=== PATIENT | female | born 1955 | race Caucasian/White ===

== ENCOUNTER 2016-09-25 13:39 | Emergency (ER) | payer SELFPAY ==
[~2016-09-25] VITALS: Ht 162.6 cm; Wt 48.0 kg
[~2016-09-25 13:39] MED LIST: ADVAI100I PO; ALBU2.5I INH; ENAL20TA PO; HYDR10TA16 PO; LORA10TA PO; PRED20 PO; VENTAER INH; ZITH250T PO
[2016-09-25 13:40] VITALS: BP 139/83; PULSE 97; RESP 20; TEMP 98.5; O2SAT 95
[2016-09-25] MEDS ORDERED: methylPREDNISolone SOD SUCC 125 MG/2 ML VIAL IVP ONE (17:00)
[2016-09-25 17:06] VITALS: O2SAT 97
--- NOTE | 2016-09-25 17:17 | PD ---
HPI Chief Complaint: Respiratory Symptoms Time Seen by Provider: 17:15 Travel History International Travel<30 days: No Contact w/Intl Traveler<30days: No Traveled to known affect area: No History of Present Illness HPI 61-year-old female that presents to the ED for evaluation of possible COPD exacerbation. Per patient she's had COPD for years. She continues to smoke but states that she has not smoked for about a week because his symptoms have worsened. Per patient for the past 3 days his been more severe. She's been using her inhalers with minimal relief. Per patient she's been having a couple episodes of bad coughing spells. She denies any chest pain but she states that she feels short of breath especially with exertion. She has no primary care doctor. She denies any abdominal pain. No nausea or vomiting. No fevers chills or sweats. No sick contacts. PFSH Past Medical History Hx Anticoagulant Therapy: Yes (ASA) Asthma: Yes Cardiovascular Problems: Yes (HTN) COPD: Yes Hypertension: Yes Respiratory: Yes (COPD) Menopausal: Yes Social History Alcohol Use: Yes (3 X WEEKLY) Tobacco Use: Yes (1+ PPD) Substance Use: No Allergies-Medications (Allergen,Severity, Reaction): Coded Allergies: No Known Allergies (Verified , 09/25/16) Reported Meds & Prescriptions Reported Meds & Active Scripts Active Zithromax Z-Thad (Azithromycin) 250 Mg Tab 250 Mg PO DIRECTED 500 MG (2 TABLETS) PO ON DAY 1, THEN 250 MG (1 TABLET) PO ON DAYS 2 TO 5. Deltasone 20 Mg Tab (Prednisone) 20 Mg Tab 40 Mg PO DAILY 4 Days Resp: Albuterol 2.5 Mg/3 Ml Neb (Albuterol Sulfate) 2.5 Mg/3 Ml Nebu 2.5 Mg INH Q4H PRN Reported Advair Diskus 100/50 (Salmeterol Xinafoate/Fluticasone) Fluticasone/Salmeterol 100/50 Inh 1 Puff PO BID Ventolin Hfa (Albuterol Sulfate) 18 Gm Aero 2 Puff INH Q4 PRN * SHAKE WELL BEFORE USE * Claritin 10 Mg Tab (Loratadine) 10 Mg Tab 10 Mg PO DAILY Enalapril Maleate 20 Mg Tab 20 Mg PO BID Lortab 10/500 (Acetaminophen/Hydrocodone Bitart) 10 Mg/500 Mg Tab 1 Tab PO TID FOR PAIN Review of Systems Except as stated in HPI: all other systems reviewed are Neg Physical Exam Narrative GENERAL: Well-nourished, well-developed patient in no apparent distress. SKIN: Warm and dry. HEAD: Atraumatic. Normocephalic. EYES: Pupils equal and round reactive to light and accommodation. No scleral icterus. No injection or drainage. ENT: No nasal bleeding or discharge. Mucous membranes pink and moist. TMs are clear with no sign of infection or perforation. No mastoid tenderness. Ear canals are intact bilaterally. No lymphadenopathy. Nostril mucosa is red and moist with clear mucus noted. No sinus tenderness to palpation noted. Tonsils are not enlarged or swollen. No ulvua Deviation. Tongue is midline. NECK: Trachea midline. No JVD. No meningeal signs noted CARDIOVASCULAR: Regular rate and rhythm. RESPIRATORY: No accessory muscle use. Wheezing heard in all lower lung car. Breath sounds equal bilaterally. GASTROINTESTINAL: Abdomen soft, non-tender, nondistended. Hepatic and splenic margins not palpable. MUSCULOSKELETAL: Extremities without clubbing, cyanosis, or edema. No obvious deformities. NEUROLOGICAL: Awake and alert. No obvious cranial nerve deficits. Motor grossly within normal limits. Five out of 5 muscle strength in the arms and legs. Normal speech. PSYCHIATRIC: Appropriate mood and affect; insight and judgment normal. Data Data Last Documented VS Vital Signs Date Time Temp Pulse Resp B/P Pulse Ox O2 Delivery O2 Flow Rate FiO2 09/25/16 17:06 97 Room Air 09/25/16 13:40 98.5 97 20 139/83 Orders Chest, Single Ap (09/25/16 16:46) Ecg Monitoring (09/25/16 16:46) Iv Access Insert/Monitor (09/25/16 16:46) Oximetry (09/25/16 16:46) Methylprednisolone So Succ Inj (Solumedr (09/25/16 17:00) Albuterol-Ipratropium Neb (Duoneb Neb) (09/25/16 17:00) [facility] Medical Decision Making Medical Screen Exam Complete: Yes Emergency Medical Condition: Yes Medical Record Reviewed: Yes Interpretation(s) Chest x-ray was negative for acute disease. Differential Diagnosis COPD exacerbation versus COPD versus asthma exacerbation versus pneumonia versus bronchitis Narrative Course 61-year-old female that presents to the ED for evaluation of possible COPD exacerbation. Patient was properly examined and was found to have signs and symptoms very consistent appears to be COPD exacerbation. Vitals and physical exam are reassuring. Patient in no acute distress at this time. I do think at this time is reasonable to give patient some breathing treatments as well as started on Solu-Medrol. Patient agrees with this plan. Patient was reassessed and feels better. This time I recommend discharge with prednisone, Cipro, albuterol inhaler. Patient was told to follow up closely with PCP. See ED worsening symptoms. Diagnosis Primary Impression: COPD (chronic obstructive pulmonary disease) Qualified Code: J44.1 - Chronic obstructive pulmonary disease with acute exacerbation Patient Instructions: General Instructions Additional Instructions: Take medications as prescribed. Follow-up with PCP. See ED worsening symptoms. Stop smoking. Med/Other Pt SpecificInfo: Prescription(s) given Disposition: 01 DISCHARGE HOME Condition: Stable Hector Weber Sep 25, 2016 17:17
[2016-09-25] MEDS ORDERED: PRED20 PO (17:22)
[2016-09-25] MEDS ORDERED: CIPR-9 PO (17:22)
[2016-09-25] MEDS ORDERED: ALBUAER3 INH (17:22)
--- NOTE | 2016-09-25 17:24 | RADRPT ---
EXAM DATE/TIME: 09/25/2016 16:41 [facility] COMPARISON: CHEST SINGLE AP, June 27, 2015, 6:35. INDICATIONS : Wheezing MEDICAL HISTORY : Chronic obstructive pulmonary disease. SURGICAL HISTORY : None. ENCOUNTER: Initial ACUITY: 3 weeks PAIN SCORE: 0/10 LOCATION: Bilateral chest FINDINGS: A single portable frontal view of the chest shows the lungs to be hyperaerated. A focal convex area s een associated with the left hemidiaphragm. This is a new finding. Heart is mildly enlarged. No effus ions or infiltrates. Bony structures are unremarkable. CONCLUSION: 1. Hyperinflation consistent with COPD. 2. Focal convexity involving the left hemidiaphragm. This may simply relate to eventration of the hem idiaphragm. I cannot exclude a subpulmonic mass. CT could help differentiate. Kevin Prabhakar Jr., MD on September 25, 2016 at 17:21 Board Certified Radiologist. This report was verified electronically.
[2016-09-25] MEDS: RESP: ALBUTEROL 2.5 MG/IPRATROPIUM 0.5 MG NEB (SCH) INH (17:53)
== END 2016-09-25 18:20 | disposition home or self-care (01) ==
LOC: NEPD 13:39
DX: J44.9 Chronic obstructive pulmonary disease, unspecified (principal); I10 Essential (primary) hypertension; J45.909 Unspecified asthma, uncomplicated; F17.200 Nicotine dependence, unspecified, uncomplicated; Z79.82 Long term (current) use of aspirin; Z79.52 Long term (current) use of systemic steroids; Z79.899 Other long term (current) drug therapy
CPT/HCPCS: 71010; 94640; 94664; 96374; 99284; J2930

== ENCOUNTER 2016-11-19 20:57 | Emergency (ER) | payer SELFPAY ==
[~2016-11-19] VITALS: Ht 165.1 cm; Wt 54.0 kg
[~2016-11-19 20:57] MED LIST changes: +ALBUAER3 INH; +CIPR-9 PO
[2016-11-19 21:00] VITALS: BP 143/81; PULSE 86; RESP 24; TEMP 98.4; O2SAT 92
[2016-11-19] MEDS ORDERED: HYDR-3366 PO (22:10)
[2016-11-19] MEDS ORDERED: CLAR10CA3 PO (22:11)
[2016-11-19] MEDS ORDERED: LISI-515 PO (22:11)
[2016-11-19] MEDS ORDERED: SODIUM CHLORIDE 0.9% FLUSH 10 ML FLUSH IVF PRN (22:15)
[2016-11-19] MEDS ORDERED: methylPREDNISolone SOD SUCC 125 MG/2 ML VIAL IV PUSH ONE (22:15)
--- NOTE | 2016-11-19 22:16 | PD ---
HPI Chief Complaint: Respiratory Distress Time Seen by Provider: 21:58 Travel History International Travel<30 days: No Contact w/Intl Traveler<30days: No Traveled to known affect area: No History of Present Illness HPI The patient is a 61 year old female who presents to the [facility] emergency department with a history of developing an upper respiratory infection on November 12. She reports that a family member had been sick with similar illness, however she suffers with COPD and has been having difficulty getting over it. She reports that she had a subjective fever a few nights ago. The patient reports that she has had congestion as well as chest congestion. She reports that her sputum is thick and difficult to get up. The patient reports that she's had a green nasal discharge. The patient denies having any nausea or vomiting. She denies having any chest pain. She reports that she does have some chest tightness with trying to take a deep breath. She reports the shortness of breath is gotten worse over the last 2 days and is unrelieved with nebulizer treatments and her Ventolin rescue inhaler use. The patient reports that she continues to smoke. She reports that she has only been able to take up a few puffs off of a single cigarette daily. Otherwise on review of systems, the patient denies having any neck pain, abdominal pain, urinary symptoms, or neurologic symptoms. The patient does report having one episode of diarrhea this morning. She denies having any blood in her stool or black or tarry stools. [facility] Past Medical History Narrative Medical The patient's past medical history is significant for hypertension, COPD, daily alcohol intake of 2-3 beers per day, history of tobacco abuse. Hx Anticoagulant Therapy: Yes (ASA) Asthma: Yes Cardiovascular Problems: Yes (HTN) COPD: Yes Hypertension: Yes Respiratory: Yes (COPD) Menopausal: Yes Past Surgical History Narrative Surgical The patient's past surgical history is reportedly none. Social History Alcohol Use: Yes (2-3 beers per day) Tobacco Use: Yes (1+ PPD) Substance Use: No Allergies-Medications (Allergen,Severity, Reaction): Coded Allergies: No Known Allergies (Verified , 11/19/16) Reported Meds & Prescriptions Reported Meds & Active Scripts Active Medrol Dosepak (Methylprednisolone) 4 Mg Dspk 4 Mg PO DIRECTED Per Pharmacist direction Doxycycline Hyclate 100 Mg Cap 100 Mg PO BID Proair Hfa 8.5 GM Inh (Albuterol Sulfate) 90 Mcg/Act Aer 2 Puff INH Q4-6H PRN 108 mcg/actuation Reported Lisinopril 20 Mg Tab 20 Mg PO DAILY Claritin (Loratadine) 10 Mg Cap 10 Mg PO DAILY [place] (Hydrocodone-Acetaminophen) 10-325 Mg Tab 1 Tab PO Q8HR PRN Review of Systems Except as stated in HPI: all other systems reviewed are Neg General / Constitutional: Positive: Fever Eyes: No: Visual changes HENT: Positive: Rhinorrhea, Congestion, No: Headaches Cardiovascular: Positive: Chest Pain or Discomfort (chest tightness), Dyspnea on exertion Respiratory: Positive: Cough, Shortness of Breath Gastrointestinal: Positive: Diarrhea, Changes in Bowel Habits, No: Nausea, Vomiting, Abdominal Pain, Indigestion, Loss of Appetite Genitourinary: No: Dysuria Musculoskeletal: No: Pain Skin: No Rash Neurologic: No: Weakness, Focal Abnormalities, Change in Mentation, Slurred Speech, Sensory Disturbance Psychiatric: No: Depression Endocrine: No: Polydipsia Hematologic/Lymphatic: No: Easy Bruising Physical Exam Narrative General: The patient is a well-developed well-nourished female in no acute distress. Head and Neck exam: Head is normocephalic atraumatic. Eyes: EOMI, pupils are equal round and reactive to light. Nose: Midline septum with pink mucous membranes Mouth: Dentition unremarkable. Moist mucus membranes. Posterior oropharynx is not erythematous. No tonsillar hypertrophy. Uvula midline. Airway patent. Neck: No palpable lymphadenopathy. No nuchal rigidity. No thyromegaly. Cardiovascular: Regular rate and rhythm without murmurs, gallops, or rubs. Lungs: Expiratory wheezes are audible throughout bilateral lung car, no rhonchi, no crackles. The patient has some accessory muscle use noted. No paroxysmal abdominal breathing. Abdomen: Soft, without tenderness to palpation in all 4 quadrants of the abdomen. No guarding, rebound, or rigidity. Normal bowel sounds are audible. No tenderness on palpation of McBurney's point. Extremities: No clubbing, cyanosis, or edema. 2+ pulses in all 4 extremities. No calf tenderness on palpation. Back: No costovertebral angle tenderness to palpation. Neurologic Exam: Grossly nonfocal. Skin Exam: No rash noted. Intact skin that is warm and dry. Data Data Last Documented VS Vital Signs Date Time Temp Pulse Resp B/P (MAP) Pulse Ox O2 Delivery O2 Flow Rate FiO2 11/19/16 22:20 32 94 Room Air 11/19/16 21:00 98.4 86 143/81 (101) Orders Orders Complete Blood Count With Diff (11/19/16 22:09) B-Type Natriuretic Peptide (11/19/16 22:09) Magnesium (Mg) (11/19/16 22:09) Urinalysis - C+S If Indicated (11/19/16 22:09) Blood Culture (11/19/16 22:09) Iv Access Insert/Monitor (11/19/16 22:09) Electrocardiogram (11/19/16 22:09) Ecg Monitoring (11/19/16 22:09) Oximetry (11/19/16 22:09) Oxygen Administration (11/19/16 22:09) Chest, Single Ap (11/19/16 22:09) Sodium Chloride 0.9% Flush (Ns Flush) (11/19/16 22:15) Methylprednisolone So Succ Inj (Solumedr (11/19/16 22:15) Albuterol-Ipratropium Neb (Duoneb Neb) (11/19/16 22:15) Lactic Acid Sepsis Protocol (11/19/16 22:09) Comprehensive Metabolic Panel (11/19/16 22:09) Troponin I (11/19/16 22:09) Lipase (11/19/16 22:09) Doxycycline (Vibratab) (11/19/16 23:30) Labs Laboratory Tests Test 11/19/16 22:30 White Blood Count 4.7 TH/MM3 Red Blood Count 4.20 MIL/MM3 Hemoglobin 14.4 GM/DL Hematocrit 42.6 % Mean Corpuscular Volume 101.6 FL Mean Corpuscular Hemoglobin 34.3 PG Mean Corpuscular Hemoglobin Concent 33.7 % Red Cell Distribution Width 13.6 % Platelet Count 230 TH/MM3 Mean Platelet Volume 8.5 FL Neutrophils (%) (Auto) 59.6 % Lymphocytes (%) (Auto) 27.4 % Monocytes (%) (Auto) 9.1 % Eosinophils (%) (Auto) 3.6 % Basophils (%) (Auto) 0.3 % Neutrophils # (Auto) 2.8 TH/MM3 Lymphocytes # (Auto) 1.3 TH/MM3 Monocytes # (Auto) 0.4 TH/MM3 Eosinophils # (Auto) 0.2 TH/MM3 Basophils # (Auto) 0.0 TH/MM3 CBC Comment DIFF FINAL Differential Comment Urine Color LIGHT-YELLOW Urine Turbidity CLEAR Urine pH 5.5 Urine Specific [place] 1.006 Urine Protein NEG mg/dL Urine Glucose (UA) NEG mg/dL Urine Ketones NEG mg/dL Urine Occult Blood NEG Urine Nitrite NEG Urine Bilirubin NEG Urine Urobilinogen LESS THAN 2.0 MG/DL Urine Leukocyte Esterase SMALL Urine RBC LESS THAN 1 /hpf Urine WBC 1 /hpf Urine Squamous Epithelial Cells 1 /hpf Microscopic Urinalysis Comment CULT NOT INDICATED Blood Urea Nitrogen 8 MG/DL Creatinine 0.45 MG/DL Random Glucose 76 MG/DL Total Protein 7.1 GM/DL Albumin 3.9 GM/DL Calcium Level 8.8 MG/DL Magnesium Level 2.2 MG/DL Alkaline Phosphatase 76 U/L Aspartate Amino Transf (AST/SGOT) 18 U/L Alanine Aminotransferase (ALT/SGPT) 19 U/L Total Bilirubin 0.3 MG/DL Sodium Level 138 MEQ/L Potassium Level 3.6 MEQ/L Chloride Level 102 MEQ/L Carbon Dioxide Level 28.8 MEQ/L Anion Gap 7 MEQ/L Estimat Glomerular Filtration Rate 142 ML/MIN Lactic Acid Level 0.9 mmol/L Troponin I LESS THAN 0.02 NG/ML B-Type Natriuretic Peptide 17 PG/ML Lipase 148 U/L [facility] Medical Decision Making Medical Screen Exam Complete: Yes Emergency Medical Condition: Yes Medical Record Reviewed: Yes Interpretation(s) Last Impressions Chest X-Ray 11/19/162208 Signed Impressions: Service Date/Time: Saturday, November 19, 2016 22:25 - CONCLUSION: Hyperinflation suggesting COPD. No acute infiltrate or effusion. Kevin Prabhakar Jr., MD Differential Diagnosis COPD exacerbation, versus pneumonia, versus pneumothorax, versus new-onset congestive heart failure, versus acute coronary syndrome Narrative Course During the course of the patients emergency department visit, the patients history, examination, and differential diagnosis were reviewed with the patient. The patient had IV access obtained and blood work sent for analysis. The patient states on a surveillance system monitor with oximetry and blood pressure monitoring. The patient had an EKG done on arrival that shows a sinus tachycardia rate of 103, no acute ST segment elevation or depression, QRS duration is 85 ms, QTC is 370 ms. The patient was initially provided Solu-Medrol 125 mg IV, DuoNeb 3. The patients laboratory studies were reviewed and remarkable for a white count of 4.7, hemoglobin 14.4, platelets 2:30 with 9.1 monocytes suggestive of a viral process, CMP is remarkable for creatinine of 0.45, troponin I less than 0.02, BNP is 17, lipase 148, lactic acid 0.9, urinalysis is unremarkable. Radiology studies were reviewed and remarkable for a chest x-ray that shows hyperinflation suggesting COPD, no acute infiltrate or effusion. The patient was reexamined after DuoNeb 3. The patient reports feeling improved. The patient is on room air and her O2 saturation is 94-95%. The patient will be discharged home to continue with use of her rescue inhaler and albuterol nebulizer treatments as needed. The patient will also add onto her regimen doxycycline which she was given her first dose of her today, and a Medrol Dosepak taper. She is instructed regarding the importance of close follow-up with her primary care physician for reexamination in the next 2 days. The patient is resting comfortably and feels better, is alert and in no distress. The patients results and examination findings were discussed with the patient. The repeat examination is unremarkable and benign. The history, exam, diagnostic testing, and current condition do not suggest any significant pathology to warrant further testing, continued ED treatment, admission, or surgical evaluation at this point. The vital signs have been stable. The patient does not have uncontrollable pain, intractable vomiting, or other significant symptoms. The patient's condition is stable and appropriate for discharge. The patient will pursue further outpatient evaluation with a primary care physician or other designated or consulting physician as indicated in the discharge instructions. The patient expressed understanding and was agreeable with this plan. Diagnosis Primary Impression: COPD with exacerbation Additional Impression: Bronchitis Referrals: Primary Care Physician 2 days Patient Instructions: Acute Bronchitis (ED), COPD (Chronic Obstructive Pulmonary Disease) (ED), General Instructions Med/Other Pt SpecificInfo: Prescription(s) given Scripts Methylprednisolone Dosepak (Medrol Dosepak) 4 Mg Dspk 4 MG PO DIRECTED, #1 DSPK 0 Refills Per Pharmacist direction Prov: Love Luis MD 11/19/16 Doxycycline Hyclate (Doxycycline Hyclate) 100 Mg Cap 100 MG PO BID for Infection, #19 CAP 0 Refills Prov: Love Luis MD 11/19/16 Disposition: 01 DISCHARGE HOME Condition: Stable Love Luis MD Nov 19, 2016 22:16
[2016-11-19] MEDS: RESP: ALBUTEROL 2.5 MG/IPRATROPIUM 0.5 MG NEB (SCH) INH (22:17)
[2016-11-19 22:45] LABS: BLOOD, URINE NEG (NEG); GLUCOSE,URINE NEG (NEG); KETONE, URINE NEG (NEG); NITRITE,URINE NEG (NEG); PH, URINE 5.5 (5.0-8.5); SQUAMOUS EPITHELIAL CELL URINE 1 /hpf (0-5); URINE COLOR LIGHT-YELLOW (YELLW/STRAW)
[2016-11-19 22:46] LABS: AUTOMATED NEUTROPHIL # 2.8 TH/MM3 (1.8-7.7); BASOPHIL % 0.3 % (0.0-2.0); EOSINOPHIL # 0.2 TH/MM3 (0-0.4); EOSINOPHIL % 3.6 % (0.0-4.0); HEMATOCRIT 42.6 % (35.0-46.0); HEMO FLAGS DIFF FINAL; LYMPH % 27.4 % (9.0-44.0); LYMPHOCYTE # 1.3 TH/MM3 (1.0-4.8); MEAN CELL VOLUME 101.6 FL (80.0-100.0); MEAN CORPUSCULAR HEMOGLOBIN 34.3 PG (27.0-34.0); MEAN CORPUSCULAR HGB CONC 33.7 % (32.0-36.0); MONO % 9.1 % (0.0-8.0); NEUT % 59.6 % (16.0-70.0); PLATELET COUNT 230 TH/MM3 (150-450); RED CELL DISTRIBUTION WIDTH 13.6 % (11.6-17.2); WHITE BLOOD COUNT 4.7 TH/MM3 (4.0-11.0)
[2016-11-19 22:52] LABS: COMMENT (UR) CULT NOT INDICATED; CULTURE IF INDICATED CULT NOT INDICATED
[2016-11-19 23:04] LABS: ALT (GPT) 19 U/L (10-53); ANION GAP 7 MEQ/L (5-15); AST (GOT) 18 U/L (15-37); BICARBONATE 28.8 MEQ/L (21.0-32.0); BLOOD UREA NITROGEN 8 MG/DL (7-18); CHLORIDE 102 MEQ/L (98-107); GLOMERULAR FILTRATION RATE 142 ML/MIN (>89); MAGNESIUM 2.2 MG/DL (1.5-2.5); POTASSIUM 3.6 MEQ/L (3.5-5.1); SODIUM (NA) 138 MEQ/L (136-145)
--- NOTE | 2016-11-19 23:04 | RADRPT ---
EXAM DATE/TIME: 11/19/2016 22:25 [facility] COMPARISON: CHEST SINGLE AP, September 25, 2016, 16:41. INDICATIONS : Shortness of breath. MEDICAL HISTORY : Chronic obstructive pulmonary disease. SURGICAL HISTORY : None. ENCOUNTER: Initial ACUITY: 1 day PAIN SCORE: 0/10 LOCATION: Bilateral chest FINDINGS: A single view of the chest demonstrates the lungs to be symmetrically aerated without evidence of mas s, infiltrate or effusion. The lungs are hyperinflated bilaterally. The cardiomediastinal contours ar e unremarkable. Osseous structures are intact. CONCLUSION: Hyperinflation suggesting COPD. No acute infiltrate or effusion. Kevin Prabhakar Jr., MD on November 19, 2016 at 23:01 Board Certified Radiologist. This report was verified electronically.
[2016-11-19 23:08] LABS: ALKALINE PHOSPHATASE 76 U/L (45-117); TOTAL BILIRUBIN ADULT 0.3 MG/DL (0.2-1.0)
[2016-11-19] MEDS ORDERED: DOXYCYCLINE HYCLATE 100 MG TAB PO ONE (23:30)
[2016-11-19] MEDS ORDERED: DOXY100C PO (23:50)
[2016-11-19] MEDS ORDERED: MEDR4PAK PO (23:50)
[2016-11-20 02:15] VITALS: BP 132/81
--- NOTE | 2016-11-20 14:21 | EKG ---
Date Performed: 11/19/2016 Time Performed: 23:04:10 PTAGE: 61 years EKG: SINUS TACHYCARDIA POSSIBLE RIGHT ATRIAL ENLARGEMENT POSSIBLE LEFT ATRIAL ENLARGEMENT ABNORM AL RHYTHM ECG PREVIOUS TRACING : 06/27/2015 06.21 No significant change from previous tracing noted. DOCTOR: Christoph Mosley Interpretating Date/Time 11/20/2016 14:20:46
== END 2016-11-20 02:15 | disposition home or self-care (01) ==
LOC: NEPE 20:57
DX: J44.1 Chronic obstructive pulmonary disease with (acute) exacerbation (principal); J40 Bronchitis, not specified as acute or chronic; R94.31 Abnormal electrocardiogram [ECG] [EKG]; I10 Essential (primary) hypertension; Z72.0 Tobacco use; Z72.89 Other problems related to lifestyle
CPT/HCPCS: 71010; 80053; 81001; 83605; 83690; 83735; 83880; 84484; 85025; 87040; 93005; 94640; 94664; 96374; 99285; J2930

== ENCOUNTER 2017-04-02 13:24 | Inpatient (IN) | payer SELFPAY ==
[~2017-04-02] VITALS: Ht 166.4 cm; Wt 110.0 kg
[~2017-04-02 13:24] MED LIST changes: -ADVAI100I PO; -ALBU2.5I INH; -CIPR-9 PO; +CLAR10CA3 PO; +DOXY100C PO; -ENAL20TA PO; +HYDR-3366 PO; -HYDR10TA16 PO; +LISI-515 PO; -LORA10TA PO; +MEDR4PAK PO; -PRED20 PO; -VENTAER INH; -ZITH250T PO
[2017-04-02 13:28] VITALS: BP 127/84; PULSE 95; RESP 22; TEMP 98.6; O2SAT 94
--- NOTE | 2017-04-02 14:13 | RADRPT ---
EXAM DATE/TIME: 04/02/2017 14:00 [facility] COMPARISON: CHEST SINGLE AP, November 19, 2016, 22:25. INDICATIONS : Short of breath. MEDICAL HISTORY : Chronic obstructive pulmonary disease. SURGICAL HISTORY : None. ENCOUNTER: Initial ACUITY: 1 month PAIN SCORE: 0/10 LOCATION: Bilateral chest FINDINGS: PA and lateral views of the chest were obtained and demonstrate hyperinflation of both lungs with mil d bullous change. There is a benign calcified structure again noted in the left lung apex. There are no new confluent infiltrates or effusions. The heart and mediastinal structures remain within normal limits. Mild atherosclerotic changes present in the aorta. CONCLUSION: 1. Underlying emphysema and bullous change. 2. No evidence of pneumonia. Artur Prater MD on April 02, 2017 at 14:09 Board Certified Radiologist. This report was verified electronically.
[2017-04-02 15:41] LABS: AUTOMATED NEUTROPHIL # 3.7 TH/MM3 (1.8-7.7); BASOPHIL % 0.4 % (0.0-2.0); EOSINOPHIL # 0.2 TH/MM3 (0-0.4); EOSINOPHIL % 4.7 % (0.0-4.0); HEMATOCRIT 44.1 % (35.0-46.0); HEMOGLOBIN 14.9 GM/DL (11.6-15.3); LYMPHOCYTE # 0.9 TH/MM3 (1.0-4.8); MEAN CELL VOLUME 101.3 FL (80.0-100.0); MEAN CORPUSCULAR HEMOGLOBIN 34.3 PG (27.0-34.0); MEAN CORPUSCULAR HGB CONC 33.9 % (32.0-36.0); MEAN PLATELET VOLUME 8.8 FL (7.0-11.0); MONO % 6.3 % (0.0-8.0); MONOCYTE # 0.3 TH/MM3 (0-0.9); NEUT % 71.6 % (16.0-70.0); PLATELET COUNT 230 TH/MM3 (150-450); RED BLOOD COUNT 4.35 MIL/MM3 (4.00-5.30); RED CELL DISTRIBUTION WIDTH 13.7 % (11.6-17.2); WHITE BLOOD COUNT 5.2 TH/MM3 (4.0-11.0)
[2017-04-02 16:06] LABS: PROTHROMBIN TIME - PATIENT 9.8 SEC (9.8-11.6)
[2017-04-02 16:08] LABS: BICARBONATE 30.8 MEQ/L (21.0-32.0); BLOOD UREA NITROGEN 12 MG/DL (7-18); CALCIUM 8.7 MG/DL (8.5-10.1); CHLORIDE 105 MEQ/L (98-107); CREATININE 0.42 MG/DL (0.50-1.00); GLOMERULAR FILTRATION RATE 154 ML/MIN (>89); GLUCOSE,RANDOM 84 MG/DL (74-106); MAGNESIUM 2.4 MG/DL (1.5-2.5); SODIUM (NA) 142 MEQ/L (136-145); TROPONIN I LESS THAN 0.02 NG/ML (0.02-0.05)
[2017-04-02] MEDS ORDERED: LORA-392 PO (16:29)
[2017-04-02 16:30] VITALS: O2SAT 100
[2017-04-02] MEDS ORDERED: methylPREDNISolone SOD SUCC 125 MG/2 ML VIAL IV PUSH ONE (16:30)
[2017-04-02] MEDS ORDERED: SODIUM CHLOR 0.9% 1000 ML INJ 1,000 ML IV ONE (16:30)
--- NOTE | 2017-04-02 16:36 | PD ---
HPI Chief Complaint: Respiratory Symptoms Time Seen by Provider: 16:19 Travel History International Travel<30 days: No Contact w/Intl Traveler<30days: No Traveled to known affect area: No History of Present Illness HPI 61-year-old female with a history of COPD, anxiety, and continuous tobacco dependence presents emergency department with shortness of breath that started approximately 3 weeks ago. Says that she went to her primary care physician on Sunday and he prescribed her steroids and azithromycin and she felt better for 2 days but has since gone back to how she was feeling before. States she has been using albuterol inhalers and nebulizers at home and this is not significantly improved her condition. Her last yeager of prednisone was yesterday. Patient does not have a primary care physician that she follows regularly. Pt denies chest pain, back pain, abdominal pain, leg pain. Denies history of clots , travel, surgeries, fractures. Denies cardiac history or ever getting stress test or echocardiogram. Denies use of oxygen at home. Her friend helps give history as well. Says she has looked this short of breath for several months and says this is not a new finding. PFSH Past Medical History Hx Anticoagulant Therapy: Yes (ASA) Asthma: Yes Cardiovascular Problems: Yes (HTN) COPD: Yes Diminished Hearing: No Hypertension: Yes Respiratory: Yes (COPD) Menopausal: Yes Social History Alcohol Use: Yes (2-3 beers per day) Tobacco Use: Yes (1+ PPD) Substance Use: No Allergies-Medications (Allergen,Severity, Reaction): Coded Allergies: No Known Allergies (Verified Adverse Reaction, Unknown, 04/02/17) Reported Meds & Prescriptions Reported Meds & Active Scripts Active Proair Hfa 8.5 GM Inh (Albuterol Sulfate) 90 Mcg/Act Aer 2 Puff INH Q4-6H PRN 108 mcg/actuation Reported Ativan (Lorazepam) 0.5 Mg Tab 0.5 Mg PO DAILY PRN Lisinopril 20 Mg Tab 20 Mg PO DAILY Claritin (Loratadine) 10 Mg Cap 10 Mg PO DAILY [place] (Hydrocodone-Acetaminophen) 10-325 Mg Tab 1 Tab PO Q8HR PRN Review of Systems Except as stated in HPI: all other systems reviewed are Neg Physical Exam Narrative GENERAL: WD, WN, in NAD SKIN: Warm and dry. HEAD: Atraumatic. Normocephalic. EYES: Pupils equal and round. No scleral icterus. No injection or drainage. ENT: No nasal bleeding or discharge. Mucous membranes pink and moist. NECK: Trachea midline. No JVD. CARDIOVASCULAR: Regular rate and rhythm. RESPIRATORY: No accessory muscle use. Clear to auscultation. Breath sounds equal bilaterally. GASTROINTESTINAL: Abdomen soft, non-tender, nondistended. Hepatic and splenic margins not palpable. MUSCULOSKELETAL: Extremities without clubbing, cyanosis, or edema. No obvious deformities. NEUROLOGICAL: Awake and alert. No obvious cranial nerve deficits. Motor grossly within normal limits. Five out of 5 muscle strength in the arms and legs. Normal speech. PSYCHIATRIC: Appropriate mood and affect; insight and judgment normal. Data Data Last Documented VS Vital Signs Date Time Temp Pulse Resp B/P (MAP) Pulse Ox O2 Delivery O2 Flow Rate FiO2 04/02/17 16:30 100 Nasal Cannula 2.00 04/02/17 13:28 98.6 95 22 127/84 (98) Orders Orders Complete Blood Count With Diff (04/02/17 13:53) Basic Metabolic Panel (Bmp) (04/02/17 13:53) Act Partial Throm Time (Ptt) (04/02/17 13:53) Prothrombin Time / Inr (Pt) (04/02/17 13:53) Magnesium (Mg) (04/02/17 13:53) Ckmb (Isoenzyme) Profile (04/02/17 13:53) Troponin I (04/02/17 13:53) Electrocardiogram (04/02/17 13:53) Chest, Pa & Lat (04/02/17 13:53) Methylprednisolone So Succ Inj (Solumedr (04/02/17 16:30) Albuterol-Ipratropium Neb (Duoneb Neb) (04/02/17 16:30) Sodium Chlor 0.9% 1000 Ml Inj (Ns 1000 M (04/02/17 16:30) Admit Order (Ed Use Only) (04/02/17 19:15) Labs Laboratory Tests Test 04/02/17 14:59 White Blood Count 5.2 TH/MM3 Red Blood Count 4.35 MIL/MM3 Hemoglobin 14.9 GM/DL Hematocrit 44.1 % Mean Corpuscular Volume 101.3 FL Mean Corpuscular Hemoglobin 34.3 PG Mean Corpuscular Hemoglobin Concent 33.9 % Red Cell Distribution Width 13.7 % Platelet Count 230 TH/MM3 Mean Platelet Volume 8.8 FL Neutrophils (%) (Auto) 71.6 % Lymphocytes (%) (Auto) 17.0 % Monocytes (%) (Auto) 6.3 % Eosinophils (%) (Auto) 4.7 % Basophils (%) (Auto) 0.4 % Neutrophils # (Auto) 3.7 TH/MM3 Lymphocytes # (Auto) 0.9 TH/MM3 Monocytes # (Auto) 0.3 TH/MM3 Eosinophils # (Auto) 0.2 TH/MM3 Basophils # (Auto) 0.0 TH/MM3 CBC Comment DIFF FINAL Differential Comment Prothrombin Time 9.8 SEC Prothromb Time International Ratio 1.0 RATIO Activated Partial Thromboplast Time 26.9 SEC Blood Urea Nitrogen 12 MG/DL Creatinine 0.42 MG/DL Random Glucose 84 MG/DL Calcium Level 8.7 MG/DL Magnesium Level 2.4 MG/DL Sodium Level 142 MEQ/L Potassium Level 4.2 MEQ/L Chloride Level 105 MEQ/L Carbon Dioxide Level 30.8 MEQ/L Anion Gap 6 MEQ/L Estimat Glomerular Filtration Rate 154 ML/MIN Total Creatine Kinase 85 U/L Troponin I LESS THAN 0.02 NG/ML MDM Medical Decision Making Medical Screen Exam Complete: Yes Emergency Medical Condition: Yes Differential Diagnosis COPD exacerbation, PNA, asthma exacerbation, tobacco dependence, anxiety Narrative Course 61-year-old female with a history of COPD, anxiety, and continuous tobacco dependence presents emergency department with shortness of breath that started approximately 3 weeks ago. Says that she went to her primary care physician on Sunday and he prescribed her steroids and azithromycin and she felt better for 2 days but has since gone back to how she was feeling before. States she has been using albuterol inhalers and nebulizers at home and this is not significantly improved her condition. Her last yeager of prednisone was yesterday. Patient does not have a primary care physician that she follows regularly. Pt denies chest pain, back pain, abdominal pain, leg pain. Denies history of clots , travel, surgeries, fractures. Denies cardiac history or ever getting stress test or echocardiogram. Denies use of oxygen at home. Her friend helps give history as well. Says she has looked this short of breath for several months and says this is not a new finding. States she has been out of her alprazolam for her anxiety. O2 Saturation 92-93% RA Duonebs, solumedrol, IVF ordered. Pt does feel better after the duonebs but still feels SOB. Last Impressions Chest X-Ray 04/02/17 1353 Signed Impressions: Service Date/Time: Sunday, April 02, 2017 14:00 - CONCLUSION: 1. Underlying emphysema and bullous change. 2. No evidence of pneumonia. Artur Prater MD Cardiac enzymes negative. CBC & BMP Diagram 04/02/17 14:59 Calcium Level 8.7, Magnesium Level 2.4 Pt initially agreed to go home however, after further discussion, patient states that she would like to stay. Walking SaO2 at 86-88 without oxygen. Patient is not normally on oxygen at home. Patient will be admitted to observation. Diagnosis Primary Impression: Tobacco dependence Additional Impression: COPD (chronic obstructive pulmonary disease) Qualified Codes: J44.1 - Chronic obstructive pulmonary disease with (acute) exacerbation Admitting Information Admitting Physician Requests: Observation Condition: Stable Tammie Berrios Apr 02, 2017 16:36
[2017-04-02] MEDS: RESP: ALBUTEROL 2.5 MG/IPRATROPIUM 0.5 MG NEB (SCH) INH ×2 (16:49→16:50)
--- NOTE | 2017-04-02 18:36 | PD ---
Physical Exam Narrative I, Dr. Peraza, have reviewed the advance practice practitioner's documentation and am in agreement, met with the patient face to face, made the diagnosis, and the medical decision making was done by me. *My assessment and Findings: Patient is a 61-year-old female comes in complaining of shortness of breath. She says it seems to get worse at night. She is still smoking. Exam shows occasional wheezing and coarse breath sounds. Data Data Last Documented VS Vital Signs Date Time Temp Pulse Resp B/P (MAP) Pulse Ox O2 Delivery O2 Flow Rate FiO2 04/02/17 16:30 100 Nasal Cannula 2.00 04/02/17 13:28 98.6 95 22 127/84 (98) Orders Orders Complete Blood Count With Diff (04/02/17 13:53) Basic Metabolic Panel (Bmp) (04/02/17 13:53) Act Partial Throm Time (Ptt) (04/02/17 13:53) Prothrombin Time / Inr (Pt) (04/02/17 13:53) Magnesium (Mg) (04/02/17 13:53) Ckmb (Isoenzyme) Profile (04/02/17 13:53) Troponin I (04/02/17 13:53) Electrocardiogram (04/02/17 13:53) Chest, Pa & Lat (04/02/17 13:53) Methylprednisolone So Succ Inj (Solumedr (04/02/17 16:30) Albuterol-Ipratropium Neb (Duoneb Neb) (04/02/17 16:30) Sodium Chlor 0.9% 1000 Ml Inj (Ns 1000 M (04/02/17 16:30) Admit Order (Ed Use Only) (04/02/17 19:15) Labs Laboratory Tests Test 04/02/17 14:59 White Blood Count 5.2 TH/MM3 Red Blood Count 4.35 MIL/MM3 Hemoglobin 14.9 GM/DL Hematocrit 44.1 % Mean Corpuscular Volume 101.3 FL Mean Corpuscular Hemoglobin 34.3 PG Mean Corpuscular Hemoglobin Concent 33.9 % Red Cell Distribution Width 13.7 % Platelet Count 230 TH/MM3 Mean Platelet Volume 8.8 FL Neutrophils (%) (Auto) 71.6 % Lymphocytes (%) (Auto) 17.0 % Monocytes (%) (Auto) 6.3 % Eosinophils (%) (Auto) 4.7 % Basophils (%) (Auto) 0.4 % Neutrophils # (Auto) 3.7 TH/MM3 Lymphocytes # (Auto) 0.9 TH/MM3 Monocytes # (Auto) 0.3 TH/MM3 Eosinophils # (Auto) 0.2 TH/MM3 Basophils # (Auto) 0.0 TH/MM3 CBC Comment DIFF FINAL Differential Comment Prothrombin Time 9.8 SEC Prothromb Time International Ratio 1.0 RATIO Activated Partial Thromboplast Time 26.9 SEC Blood Urea Nitrogen 12 MG/DL Creatinine 0.42 MG/DL Random Glucose 84 MG/DL Calcium Level 8.7 MG/DL Magnesium Level 2.4 MG/DL Sodium Level 142 MEQ/L Potassium Level 4.2 MEQ/L Chloride Level 105 MEQ/L Carbon Dioxide Level 30.8 MEQ/L Anion Gap 6 MEQ/L Estimat Glomerular Filtration Rate 154 ML/MIN Total Creatine Kinase 85 U/L Troponin I LESS THAN 0.02 NG/ML MDM Supervised Visit with ANTONIA: Yes Narrative Course Patient was given duo nebs with some improvement of her symptoms. Chest x-ray shows no acute abnormalities. When patient stands up, her oxygen saturation drops into the 80s. She does not have home oxygen. She will be admitted for further management. Diagnosis Primary Impression: Tobacco dependence Additional Impression: COPD (chronic obstructive pulmonary disease) Qualified Codes: J44.1 - Chronic obstructive pulmonary disease with (acute) exacerbation Admitting Information Admitting Physician Requests: Observation Scripts Prednisone (Prednisone) 20 Mg Tab 20 MG PO BID for Broncospasm for 5 Days, #10 TAB 0 Refills Prov: Lesley Phan 04/04/17 [Budeson-Formot 160-4.5 Mcg Inh] 60 PUFF AERO No Conflict Check 2 PUFF INH Q12HR, #1 INHALER Prov: Lesley Phan 04/04/17 Multiple Vitamins W/ Minerals (Thera M Plus) 1 Tab 1 TAB PO DAILY for Nutritional Supplement, #30 TAB Prov: Lesley Phan 04/03/17 Thiamine HCl (Gnp Vitamin B-1) 100 Mg Tab 100 MG PO DAILY for Nutritional Supplement, #30 TAB Prov: Lesley Phan 04/03/17 Folic Acid (Folic Acid) 1 Mg Tablet 1 MG PO DAILY for Nutritional Supplement, #30 TAB Prov: Lesley Phan 04/03/17 [Albuterol-Ipratropium Neb] 1 AMPULE NEBU No Conflict Check 1 AMPULE NEB Q4HR WHILE AWAKE NEB, #100 AMPULE Prov: Lesley Phan 04/03/17 Levofloxacin (Levaquin) 750 Mg Tablet 750 MG PO DAILY@1800 for COPD EXAC, #6 TAB Prov: Lesley Phan 04/03/17 Condition: Nicole Shepherd MD Apr 02, 2017 18:36
[2017-04-02 19:25] VITALS: BP 127/80; PULSE 66; RESP 26; O2SAT 93
--- NOTE | 2017-04-02 19:27 | HHI.HP ---
HPI Service [facility] Primary Care Physician Breanna Bacon) Jaspreet Juárez MD Admission Diagnosis COPD, hypoxia, Walking O2 86-88% Diagnoses: (1) COPD (chronic obstructive pulmonary disease) Diagnosis: Principal (2) Hypoxia Diagnosis: Principal (3) HTN (hypertension) Diagnosis: Principal (4) Alcohol use Diagnosis: Principal (5) Tobacco abuse Diagnosis: Principal Travel History International Travel<30 Days: No Contact w/Intl Traveler <30 Da: No Traveled to Known Affected Are: No History of Present Illness This is a 61-year-old female with a PMH of HTN, COPD and Tobacco Abuse presented to the ER with complaints of SOB and wheezing. States symptoms have been ongoing for 2-3 wks. Seen by PCP for similar complaints on Sunday, started on Prednisone and Z-pack which she completed. Reports temporary improvement w/ treatment, however now w/ recurrent symptoms. +SOB/wheezing, moderate to severe, worse w/ exertion, associated w/ non-productive cough. Reports sick contact, sister/mother sick. Denies fever or chills. On arrival, BP 127/84, HR 95, O2 sat 94% on RA, Afebrile. CBC essentially unremarkable. Chemistry unremarkable. INR 1.0. CXR with underlying emphysema and bullous changes, no pneumonia. Pt had ambulating O2 in ER w/ O2 sat 86-88% and significant dyspnea. Review of Systems Except as stated in HPI: all other systems reviewed are Neg ROS: 14 point review of systems otherwise negative. Past Family Social History Past Medical History PMH: HTN, COPD and Tobacco Abuse Past Surgical History PAST SURGICAL HISTORY: None Allergies: Coded Allergies: No Known Allergies (Verified Allergy, Unknown, 04/02/17) Family History PAST FAMILY HISTORY: Reviewed. No h/o DM or CAD Social History PAST SOCIAL HISTORY: Drinks 2-3 beers per day. Smokes 3-5 cigarettes per day. Negative for drugs. Physical Exam Vital Signs Vital Signs Date Time Temp Pulse Resp B/P (MAP) Pulse Ox O2 Delivery O2 Flow Rate FiO2 04/02/17 16:30 100 Nasal Cannula 2.00 04/02/17 13:28 98.6 95 22 127/84 (98) 94 Room Air Physical Exam PE: GENERAL: Pleasant middle-aged white female in no acute distress. Some dyspnea with speech HEENT: PERRLA, EOMI. No scleral icterus or conjunctival pallor. No lid lag or facial droop. CARDIOVASCULAR: Regular rate and rhythm. No obvious murmurs to auscultation. No chest tenderness to palpation. RESPIRATORY: No obvious rhonchi, +wheezing. Clear to auscultation. Breath sounds equal bilaterally. GASTROINTESTINAL: Abdomen soft, non-tender, nondistended. BS normal. MUSCULOSKELETAL: Extremities without clubbing, cyanosis, or edema. No obvious deformities. NEUROLOGICAL: Awake, alert and oriented x4. No focal neurologic deficits. Moving both upper and lower extremities spontaneously. Laboratory Laboratory Tests Test 04/02/17 14:59 White Blood Count 5.2 Red Blood Count 4.35 Hemoglobin 14.9 Hematocrit 44.1 Mean Corpuscular Volume 101.3 Mean Corpuscular Hemoglobin 34.3 Mean Corpuscular Hemoglobin Concent 33.9 Red Cell Distribution Width 13.7 Platelet Count 230 Mean Platelet Volume 8.8 Neutrophils (%) (Auto) 71.6 Lymphocytes (%) (Auto) 17.0 Monocytes (%) (Auto) 6.3 Eosinophils (%) (Auto) 4.7 Basophils (%) (Auto) 0.4 Neutrophils # (Auto) 3.7 Lymphocytes # (Auto) 0.9 Monocytes # (Auto) 0.3 Eosinophils # (Auto) 0.2 Basophils # (Auto) 0.0 CBC Comment DIFF FINAL Differential Comment Prothrombin Time 9.8 Prothromb Time International Ratio 1.0 Activated Partial Thromboplast Time 26.9 Blood Urea Nitrogen 12 Creatinine 0.42 Random Glucose 84 Calcium Level 8.7 Magnesium Level 2.4 Sodium Level 142 Potassium Level 4.2 Chloride Level 105 Carbon Dioxide Level 30.8 Anion Gap 6 Estimat Glomerular Filtration Rate 154 Total Creatine Kinase 85 Troponin I LESS THAN 0.02 Result Diagram: 04/02/17 1459 04/02/17 1459 Caprini VTE Risk Assessment Caprini VTE Risk Assessment: No/Low Risk (score <= 1) Caprini Risk Assessment Model Point Value = 1 Point Value = 2 Point Value = 3 Point Value = 5 Age 41-60 Minor surgery BMI > 25 kg/m2 Swollen legs Varicose veins or History of unexplained or recurrent spontaneous Oral contraceptives or hormone replacement Sepsis (< 1 month) Serious lung disease, including pneumonia (< 1 month) Abnormal pulmonary function Acute myocardial infarction Congestive heart failure (< 1 month) History of inflammatory bowel disease Medical patient at bed rest Age 61-74 Arthroscopic surgery Major open surgery (> 45 min) Laparoscopic surgery (> 45 min) Malignancy Confined to bed (> 72 hours) Immobilizing plaster cast Central venous access Age >= 75 History of VTE Family history of VTE Factor V Leiden Prothrombin 52538H Lupus anticoagulant Anticardiolipin antibodies Elevated serum homocysteine Heparin-induced thrombocytopenia Other congenital or acquired thrombophilia Stroke (< 1 month) Elective arthroplasty Hip, pelvis, or leg fracture Acute spinal cord injury (< 1 month) Prophylaxis Regimen Total Risk Factor Score Risk Level Prophylaxis Regimen 0-1 Low Early ambulation 2 Moderate Order ONE of the following: *Sequential Compression Device (SCD) *Heparin 5000 units SQ BID 3-4 Higher Order ONE of the following medications: *Heparin 5000 units SQ TID *Enoxaparin/Lovenox 40 mg SQ daily (WT < 150 kg, CrCl > 30 mL/min) *Enoxaparin/Lovenox 30 mg SQ daily (WT < 150 kg, CrCl > 10-29 mL/min) *Enoxaparin/Lovenox 30 mg SQ BID (WT < 150 kg, CrCl > 30 mL/min) AND/OR *Sequential Compression Device (SCD) 5 or more Highest Order ONE of the following medications: *Heparin 5000 units SQ TID (Preferred with Epidurals) *Enoxaparin/Lovenox 40 mg SQ daily (WT < 150 kg, CrCl > 30 mL/min) *Enoxaparin/Lovenox 30 mg SQ daily (WT < 150 kg, CrCl > 10-29 mL/min) *Enoxaparin/Lovenox 30 mg SQ BID (WT < 150 kg, CrCl > 30 mL/min) AND *Sequential Compression Device (SCD) Assessment and Plan Problem List: (1) COPD (chronic obstructive pulmonary disease) ICD Code: J44.9 - Chronic obstructive pulmonary disease, unspecified Status: Acute (2) Hypoxia ICD Code: R09.02 - Hypoxemia (3) HTN (hypertension) ICD Code: I10 - Essential (primary) hypertension (4) Tobacco abuse ICD Code: Z72.0 - Tobacco use (5) Alcohol use ICD Code: Z78.9 - Other specified health status Assessment and Plan A/P: 1. COPD: Chronic Respiratory Failure w/ Acute Exacerbation. Severe. Failed Outpatient Tx, recently completed treatment w/ steroids/Z-pack. CXR w/ COPD/ emphysema, images reviewed by me. S/p Solu-Medrol and DuoNeb w/ mild improvement, however persistent SOB/Dyspnea. Solu-Medrol, DuoNeb q4h and q2h prn, Mucinex, Symbicort. 2. Hypoxia: Ambulating O2 sat 86% while in ER, monitor O2 closely. Re-eval w / repeat ambulating O2 after improvement of COPD to determine need to Home O2, not currently on Home O2 at this time. Monitor closely. 3. HTN: Resume home Lisinopril, monitor BP. 4. Alcohol Use: Drinks 2-3 beers daily, start CIWA for possible withdrawal symptoms. 5. Tobacco Abuse: Stopped smoking 3 days ago due to COPD, NicoDerm prn if needed. 6. DVT Prophylaxis: Lovenox 7. Social work for d/c planning as needed. 8. Case discussed w/ ER physician at length, labs/records/imaging reviewed by me. Physician Certification 2 Midnight Certification Type: Admission for Inpatient Services Order for Inpatient Services The services are ordered in accordance with Medicare regulations or non- Medicare payer requirements, as applicable. In the case of services not specified as inpatient-only, they are appropriately provided as inpatient services in accordance with the 2-midnight benchmark. Estimated LOS (days): 2 days is the estimated time the patient will need to remain in the hospital, assuming treatment plan goals are met and no additional complications. Post-Hospital Plan: Not yet determined Problem Qualifiers (1) COPD (chronic obstructive pulmonary disease): Qualified Codes: J44.1 - Chronic obstructive pulmonary disease with (acute) exacerbation Liseth Cade MD Apr 02, 2017 19:27
[2017-04-02] MEDS ORDERED: LORazepam 2 MG/ML VIAL IV PUSH PRN ×4 (19:30)
[2017-04-02] MEDS ORDERED: ONDANSETRON HCL 4 MG/2 ML VIAL IVP PRN (19:30)
[2017-04-02] MEDS ORDERED: RESP: ALBUTEROL 2.5 MG/IPRATROPIUM 0.5 MG NEB (PRN) NEB (19:30)
[2017-04-02] MEDS ORDERED: SENNOSIDES 8.6 MG TAB PO PRN (19:30)
[2017-04-02] MEDS ORDERED: FLUMAZENIL 0.5 MG/5 ML VIAL IV PUSH PRN (19:30)
[2017-04-02] MEDS ORDERED: MAGNESIUM HYDROXIDE SUSP 30 ML CUP PO PRN (19:30)
[2017-04-02] MEDS ORDERED: LORazepam 1 MG TAB PO PRN (19:30)
[2017-04-02] MEDS ORDERED: ACETAMINOPHEN/HYDROcodone 325 MG/5 MG TAB PO PRN (19:30)
[2017-04-02] MEDS ORDERED: HALOPERIDOL LACTATE 5 MG/ML AMP IM PRN (19:30)
[2017-04-02] MEDS ORDERED: SODIUM CHLORIDE 0.9% FLUSH 10 ML FLUSH IV FLUSH PRN (19:30)
[2017-04-02] MEDS ORDERED: LORazepam 2 MG TAB PO PRN (19:30)
[2017-04-02] MEDS ORDERED: LORazepam 0.5 MG TAB PO PRN (19:30)
[2017-04-02] MEDS ORDERED: ACETAMINOPHEN 325 MG TAB PO PRN (19:30)
[2017-04-02] MEDS ORDERED: BISACODYL 10 MG SUPP RECTAL PRN (19:30)
[2017-04-02] MEDS ORDERED: LACTULOSE SYRUP 20 GM/30 ML CUP PO PRN (19:30)
[2017-04-02 20:30] VITALS: O2SAT 96
[2017-04-02] MEDS: RESP: ALBUTEROL 2.5 MG/IPRATROPIUM 0.5 MG NEB (SCH) NEB (20:30)
[2017-04-02 20:55] VITALS: BP 110/75; PULSE 95; RESP 20; TEMP 98.4; O2SAT 95
[2017-04-02] MEDS: BUDESONIDE-FORMOTEROL 160/4.5 MCG INHALER INH SCH (21:00)
[2017-04-02] MEDS: guaiFENesin E.R. 600 MG TAB PO SCH (22:03)
[2017-04-02] MEDS: DOCUSATE SODIUM 50 MG/SENNA 8.6 MG TAB PO SCH (22:03)
[2017-04-02] MEDS: SODIUM CHLORIDE 0.9% FLUSH 10 ML FLUSH IV FLUSH SCH (22:04)
[2017-04-03] VITALS (9 sets, daily range): BP systolic 105–177; BP diastolic 58–94; PULSE 69–114; RESP 18–20; TEMP 95.6–98.4; O2SAT 92–99
[2017-04-03] MEDS: methylPREDNISolone SOD SUCC 40 MG/1 ML VIAL IV PUSH SCH ×5 (01:11→23:26)
[2017-04-03 05:15] LABS: AUTOMATED NEUTROPHIL # 3.3 TH/MM3 (1.8-7.7); BASOPHIL % 0.1 % (0.0-2.0); EOSINOPHIL % 0.1 % (0.0-4.0); HEMATOCRIT 42.3 % (35.0-46.0); HEMOGLOBIN 14.6 GM/DL (11.6-15.3); LYMPH % 8.4 % (9.0-44.0); LYMPHOCYTE # 0.3 TH/MM3 (1.0-4.8); MEAN CELL VOLUME 101.3 FL (80.0-100.0); MEAN CORPUSCULAR HEMOGLOBIN 35.1 PG (27.0-34.0); MEAN CORPUSCULAR HGB CONC 34.6 % (32.0-36.0); MEAN PLATELET VOLUME 8.5 FL (7.0-11.0); MONO % 0.7 % (0.0-8.0); NEUT % 90.7 % (16.0-70.0); PLATELET COUNT 189 TH/MM3 (150-450); RED BLOOD COUNT 4.18 MIL/MM3 (4.00-5.30); RED CELL DISTRIBUTION WIDTH 13.8 % (11.6-17.2); WHITE BLOOD COUNT 3.7 TH/MM3 (4.0-11.0)
[2017-04-03 05:37] LABS: ALBUMIN 3.6 GM/DL (3.4-5.0); AST (GOT) 11 U/L (15-37); BICARBONATE 30.4 MEQ/L (21.0-32.0); BLOOD UREA NITROGEN 15 MG/DL (7-18); CALCIUM 9.2 MG/DL (8.5-10.1); CHLORIDE 105 MEQ/L (98-107); CREATININE 0.43 MG/DL (0.50-1.00); GLOMERULAR FILTRATION RATE 150 ML/MIN (>89); GLUCOSE,RANDOM 138 MG/DL (74-106); SODIUM (NA) 139 MEQ/L (136-145)
[2017-04-03 05:42] LABS: ALKALINE PHOSPHATASE 65 U/L (45-117); ALT (GPT) 16 U/L (10-53); TOTAL BILIRUBIN ADULT 0.3 MG/DL (0.2-1.0); TOTAL PROTEIN 6.6 GM/DL (6.4-8.2)
[2017-04-03] MEDS: RESP: ALBUTEROL 2.5 MG/IPRATROPIUM 0.5 MG NEB (SCH) NEB ×4 (07:24→19:12)
[2017-04-03] MEDS: LISINOPRIL 20 MG TAB PO SCH (09:09)
[2017-04-03] MEDS: guaiFENesin E.R. 600 MG TAB PO SCH ×2 (09:09→20:24)
[2017-04-03] MEDS: MULTIVITAMINS/MINERALS THERAPEUTIC TAB PO SCH (09:09)
[2017-04-03] MEDS: THIAMINE HCL 100 MG TAB PO SCH (09:09)
[2017-04-03] MEDS: DOCUSATE SODIUM 50 MG/SENNA 8.6 MG TAB PO SCH ×2 (09:09→20:24)
[2017-04-03] MEDS: FOLIC ACID 1 MG TAB PO SCH (09:09)
[2017-04-03] MEDS: ACETAMINOPHEN/HYDROcodone 325 MG/10 MG TAB PO PRN ×2 (09:10→18:21)
[2017-04-03] MEDS: ENOXAPARIN SODIUM 40 MG/0.4 ML SYRINGE SQ SCH (09:10)
[2017-04-03] MEDS: SODIUM CHLORIDE 0.9% FLUSH 10 ML FLUSH IV FLUSH SCH ×2 (09:11→20:24)
[2017-04-03] MEDS: BUDESONIDE-FORMOTEROL 160/4.5 MCG INHALER INH SCH ×2 (09:48→20:24)
--- NOTE | 2017-04-03 16:19 | HHI.PR ---
Subjective Remarks Follow-up visit HTN, COPD, tobacco abuse. Patient seen and examined today sitting in chair. On room air. O2 sat is 92%. Reports occasional shortness of breath but states improved significantly. She is able to get some air she says. She has not walked without nasal cannula O2. States that she is afraid to get out of the room because of flu and other diseases around the hospital. Discussed with patient importance of activities and if she wants she can have a mask when she gets out of the room to find out if she is able to tolerate activities without use of O2. Denies fevers, chills, nausea, vomiting, diarrhea. Denies chest pain, dizziness, headaches. Objective Vitals Vital Signs Date Time Temp Pulse Resp B/P (MAP) Pulse Ox O2 Delivery O2 Flow Rate FiO2 04/03/17 12:00 96.8 100 20 105/63 (77) 96 04/03/17 08:00 97.7 96 20 116/66 (83) 96 04/03/17 07:30 97 Nasal Cannula 2.00 04/03/17 05:23 98.1 103 18 141/94 (110) 97 04/03/17 00:18 98.0 88 18 105/58 (74) 98 04/02/17 20:55 98.4 95 20 110/75 (87) 95 04/02/17 20:30 96 Nasal Cannula 2.00 04/02/17 20:25 04/02/17 19:25 66 26 127/80 (96) 93 Nasal Cannula 2.00 04/02/17 16:30 100 Nasal Cannula 2.00 I/O 04/02/17 04/02/17 04/02/17 04/03/17 04/03/17 04/03/17 07:00 15:00 23:00 07:00 15:00 23:00 Intake Total 1000 ml Balance 1000 ml Intake IV Total 1000 ml Result Diagram: 04/03/17 0440 04/03/17 0440 Imaging Last Impressions Chest X-Ray 04/02/17 1353 Signed Impressions: Service Date/Time: Sunday, April 02, 2017 14:00 - CONCLUSION: 1. Underlying emphysema and bullous change. 2. No evidence of pneumonia. Artur Prater MD Objective Remarks GENERAL: This is a well-nourished, well-developed patient, in no apparent distress. SKIN: Warm and dry. HEENT: Normocephalic. Pupils equal round and reactive. Nose without bleeding. Airway patent. NECK: Trachea midline. CARDIOVASCULAR: Regular rate and rhythm without murmurs, gallops, or rubs. RESPIRATORY: Diminished bases. No wheezes, rales, or rhonchi. GASTROINTESTINAL: Abdomen soft, non-tender, nondistended. Bowel Sounds normoactive x4. MUSCULOSKELETAL: Extremities without clubbing, cyanosis, or edema. NEUROLOGICAL: Awake and alert. Oriented to time, place, person. No focal neuro deficit. Moves all extremities. Normal speech. A/P Problem List: (1) COPD (chronic obstructive pulmonary disease) ICD Code: J44.9 - Chronic obstructive pulmonary disease, unspecified Status: Acute (2) Hypoxia ICD Code: R09.02 - Hypoxemia (3) HTN (hypertension) ICD Code: I10 - Essential (primary) hypertension (4) Tobacco abuse ICD Code: Z72.0 - Tobacco use (5) Alcohol use ICD Code: Z78.9 - Other specified health status Assessment and Plan 61-year-old female with a PMH of HTN, COPD and Tobacco Abuse presented to the ER with complaints of SOB and wheezing. COPD exacerbation chronic respiratory failure with acute exacerbation Hypoxia - Patient started on Solu-Medrol IV, DuoNeb's every 4 hours and every 2 when necessary, Mucinex, Symbicort - Started Levaquin by mouth - Placed on O2 nasal cannula. Keep O2 sat greater than 90%. Off of O2 while sitting in the chair O2 sat was 92% - Chest x-ray showed 1. Underlying his semen bolus change. 2. No evidence of pneumonia. - If patient has significant improvement tomorrow we'll switch over to prednisone 20 mg twice a day 5 days and will continue to finish Levaquin by mouth. - Walk test. Not on home O2. Tobacco abuse - Patient was counseled - States she wants to quit but is worried that she is unable to afford nicotine patch - Start nicotine patch HTN - Continue with home medication lisinopril - Monitor DVT prop Lovenox Discuss with patient, nursing Discharge Planning Plan to discharge home tomorrow early in the morning if significant improvement. We'll switch over medications to by mouth. Problem Qualifiers (1) COPD (chronic obstructive pulmonary disease): Qualified Codes: J44.1 - Chronic obstructive pulmonary disease with (acute) exacerbation Lesley Phan Apr 03, 2017 4:19 pm
[2017-04-03] MEDS ORDERED: Albuterol-Ipratropium Neb NEB (17:40)
[2017-04-03] MEDS ORDERED: THIA100 PO (17:40)
[2017-04-03] MEDS ORDERED: FOLI1TAB6 PO (17:40)
[2017-04-03] MEDS ORDERED: LEVA750T9 PO (17:40)
[2017-04-03] MEDS ORDERED: THERM PO (17:40)
[2017-04-03] MEDS ORDERED: LEVOFLOXACIN 750 MG TAB PO SCH (18:00)
--- NOTE | 2017-04-04 01:02 | EKG ---
Date Performed: 04/02/2017 Time Performed: 14:54:18 PTAGE: 61 years EKG: Sinus rhythm POSSIBLE RIGHT ATRIAL ENLARGEMENT LEFT ATRIAL ENLARGEMENT ABNORMAL ECG PREVIOUS TRACING : 11/19/2016 23.04 Compared to prior tracing, rate has decreased DOCTOR: Gabe Manzo Interpretating Date/Time 04/04/2017 01:01:39
[2017-04-04 03:24] VITALS: BP 107/59; PULSE 96; RESP 18; TEMP 98.3; O2SAT 99
[2017-04-04] MEDS: methylPREDNISolone SOD SUCC 40 MG/1 ML VIAL IV PUSH SCH ×2 (05:58→13:11)
[2017-04-04] MEDS: RESP: ALBUTEROL 2.5 MG/IPRATROPIUM 0.5 MG NEB (SCH) NEB ×2 (07:35→11:11)
[2017-04-04 08:00] VITALS: BP 130/81; PULSE 105; RESP 16; TEMP 97; O2SAT 92
--- NOTE | 2017-04-04 08:54 | HHI.PR ---
Subjective Remarks Follow-up visit HTN, COPD, tobacco abuse. Patient seen and examined today. But she hasn't gotten out of bed yet. Discussed with patient needs to get out of bed and sit up in a chair and walk with walk test today. Discussed possible discharge if she is doing better. Patient is concerned with regard to medication but she cannot afford it. Discuss with patient possible case management assistance for medication. Complaints about back pain and states it' s being relieved by the medication she is getting right now. Denies chest pain, palpitations, headaches, dizziness. Denies fevers, chills, n/v/d. Denies dysuria. Objective Vitals Vital Signs Date Time Temp Pulse Resp B/P (MAP) Pulse Ox O2 Delivery O2 Flow Rate FiO2 04/04/17 08:00 97.0 105 16 130/81 (97) 92 04/04/17 03:24 98.3 96 18 107/59 (75) 99 04/03/17 23:35 98.3 98 18 113/75 (88) 93 04/03/17 20:10 98.4 114 18 117/71 (86) 92 04/03/17 19:21 18 04/03/17 19:12 99 Nasal Cannula 2.00 04/03/17 16:00 95.6 69 20 177/79 (111) 97 04/03/17 12:00 96.8 100 20 105/63 (77) 96 Result Diagram: 04/03/17 0440 04/03/17 0440 Imaging Last Impressions Chest X-Ray 04/02/17 1353 Signed Impressions: Service Date/Time: Sunday, April 02, 2017 14:00 - CONCLUSION: 1. Underlying emphysema and bullous change. 2. No evidence of pneumonia. Artur Prater MD Objective Remarks GENERAL: This is a well-nourished, well-developed patient, in no apparent distress. SKIN: Warm and dry. HEENT: Normocephalic. Pupils equal round and reactive. Nose without bleeding. Airway patent. NECK: Trachea midline. CARDIOVASCULAR: Regular rate and rhythm without murmurs, gallops, or rubs. RESPIRATORY: Diminished bases. No wheezes, rales, or rhonchi. Moderate air entry. GASTROINTESTINAL: Abdomen soft, non-tender, nondistended. Bowel Sounds normoactive x4. MUSCULOSKELETAL: Extremities without clubbing, cyanosis, or edema. NEUROLOGICAL: Awake and alert. Oriented to place, person. No focal neuro deficit. Moves all extremities. Normal speech. A/P Problem List: (1) COPD (chronic obstructive pulmonary disease) ICD Code: J44.9 - Chronic obstructive pulmonary disease, unspecified Status: Acute (2) Hypoxia ICD Code: R09.02 - Hypoxemia (3) HTN (hypertension) ICD Code: I10 - Essential (primary) hypertension (4) Tobacco abuse ICD Code: Z72.0 - Tobacco use (5) Alcohol use ICD Code: Z78.9 - Other specified health status Assessment and Plan Patient is a 61-year-old female with a PMH of HTN, COPD and Tobacco Abuse presented to the ER with complaints of SOB and wheezing. COPD exacerbation chronic respiratory failure with acute exacerbation Hypoxia - Patient started on Solu-Medrol IV, DuoNeb's every 4 hours and every 2 when necessary, Mucinex, Symbicort - Started Levaquin by mouth - Placed on O2 nasal cannula. Keep O2 sat greater than 90%. Off of O2 while sitting in the chair O2 sat was 92% - Chest x-ray showed 1. Underlying his semen bolus change. 2. No evidence of pneumonia. - If patient has significant improvement tomorrow we'll switch over to prednisone 20 mg twice a day 5 days and will continue to finish Levaquin by mouth. - Walk test ordered. Not on home O2. Tobacco abuse - Patient was counseled - States she wants to quit but is worried that she is unable to afford nicotine patch - Nicotine patch HTN - Continue with home medication lisinopril - Monitor DVT prop Lovenox Discuss with patient, nursing Discharge Planning Plan to discharge home today after walk test. Spoke with case management for medication assistance. Problem Qualifiers (1) COPD (chronic obstructive pulmonary disease): Qualified Codes: J44.1 - Chronic obstructive pulmonary disease with (acute) exacerbation Lesley Phan Apr 04, 2017 08:54
[2017-04-04] MEDS ORDERED: Budeson-Formot 160-4.5 Mcg Inh INH (08:57)
[2017-04-04] MEDS ORDERED: PRED20 PO (08:57)
[2017-04-04] MEDS ORDERED: NICOTINE 14 MG/24 HR PATCH T-DERMAL SCH (09:15)
[2017-04-04] MEDS: DOCUSATE SODIUM 50 MG/SENNA 8.6 MG TAB PO SCH (09:52)
[2017-04-04] MEDS: FOLIC ACID 1 MG TAB PO SCH (09:52)
[2017-04-04] MEDS: ENOXAPARIN SODIUM 40 MG/0.4 ML SYRINGE SQ SCH (09:52)
[2017-04-04] MEDS: SODIUM CHLORIDE 0.9% FLUSH 10 ML FLUSH IV FLUSH SCH (09:53)
[2017-04-04] MEDS: MULTIVITAMINS/MINERALS THERAPEUTIC TAB PO SCH (09:53)
[2017-04-04] MEDS: LISINOPRIL 20 MG TAB PO SCH (09:53)
[2017-04-04] MEDS: guaiFENesin E.R. 600 MG TAB PO SCH (09:53)
[2017-04-04] MEDS: THIAMINE HCL 100 MG TAB PO SCH (09:53)
[2017-04-04] MEDS: BUDESONIDE-FORMOTEROL 160/4.5 MCG INHALER INH SCH (09:54)
[2017-04-04] MEDS: ACETAMINOPHEN/HYDROcodone 325 MG/10 MG TAB PO PRN (09:58)
[2017-04-04 11:54] VITALS: BP 141/70; PULSE 123; RESP 18; TEMP 97.7; O2SAT 94
--- NOTE | 2017-04-04 16:00 | HHI.DS ---
Discharge Summary Admission Date Apr 02, 2017 at 19:26 Discharge Date: Apr 04, 2017 Admitting Diagnosis COPD, hypoxia, Walking O2 86-88% (1) COPD (chronic obstructive pulmonary disease) ICD Code: J44.9 - Chronic obstructive pulmonary disease, unspecified Status: Acute (2) Hypoxia ICD Code: R09.02 - Hypoxemia (3) HTN (hypertension) ICD Code: I10 - Essential (primary) hypertension (4) Tobacco abuse ICD Code: Z72.0 - Tobacco use (5) Alcohol use ICD Code: Z78.9 - Other specified health status Procedures None Brief History - From Admission This is a 61-year-old female with a PMH of HTN, COPD and Tobacco Abuse presented to the ER with complaints of SOB and wheezing. States symptoms have been ongoing for 2-3 wks. Seen by PCP for similar complaints on Sunday, started on Prednisone and Z-pack which she completed. Reports temporary improvement w/ treatment, however now w/ recurrent symptoms. +SOB/wheezing, moderate to severe, worse w/ exertion, associated w/ non-productive cough. Reports sick contact, sister/mother sick. Denies fever or chills. On arrival, BP 127/84, HR 95, O2 sat 94% on RA, Afebrile. CBC essentially unremarkable. Chemistry unremarkable. INR 1.0. CXR with underlying emphysema and bullous changes, no pneumonia. Pt had ambulating O2 in ER w/ O2 sat 86-88% and significant dyspnea. CBC/BMP: 04/03/17 0440 04/03/17 0440 Significant Findings Laboratory Tests Test 04/02/17 14:59 04/03/17 04:40 Mean Corpuscular Volume 101.3 FL (80.0-100.0) 101.3 FL (80.0-100.0) Mean Corpuscular Hemoglobin 34.3 PG (27.0-34.0) 35.1 PG (27.0-34.0) Neutrophils (%) (Auto) 71.6 % (16.0-70.0) 90.7 % (16.0-70.0) Eosinophils (%) (Auto) 4.7 % (0.0-4.0) Lymphocytes # (Auto) 0.9 TH/MM3 (1.0-4.8) 0.3 TH/MM3 (1.0-4.8) Creatinine 0.42 MG/DL (0.50-1.00) 0.43 MG/DL (0.50-1.00) Troponin I LESS THAN 0.02 NG/ML White Blood Count 3.7 TH/MM3 (4.0-11.0) Lymphocytes (%) (Auto) 8.4 % (9.0-44.0) Random Glucose 138 MG/DL (74-106) Aspartate Amino Transf (AST/SGOT) 11 U/L (15-37) Anion Gap 4 MEQ/L (5-15) Imaging Last Impressions Chest X-Ray 04/02/17 1353 Signed Impressions: Service Date/Time: Sunday, April 02, 2017 14:00 - CONCLUSION: 1. Underlying emphysema and bullous change. 2. No evidence of pneumonia. Artur Prater MD PE at Discharge GENERAL: This is a well-nourished, well-developed patient, in no apparent distress. SKIN: Warm and dry. HEENT: Normocephalic. Pupils equal round and reactive. Nose without bleeding. Airway patent. NECK: Trachea midline. CARDIOVASCULAR: Regular rate and rhythm without murmurs, gallops, or rubs. RESPIRATORY: Diminished bases. No wheezes, rales, or rhonchi. Moderate air entry. GASTROINTESTINAL: Abdomen soft, non-tender, nondistended. Bowel Sounds normoactive x4. MUSCULOSKELETAL: Extremities without clubbing, cyanosis, or edema. NEUROLOGICAL: Awake and alert. Oriented to place, person. No focal neuro deficit. Moves all extremities. Normal speech. Pt update on day of discharge Follow-up visit HTN, COPD, tobacco abuse. Patient seen and examined today. But she hasn't gotten out of bed yet. Discussed with patient needs to get out of bed and sit up in a chair and walk with walk test today. Discussed possible discharge if she is doing better. Patient is concerned with regard to medication but she cannot afford it. Discuss with patient possible case management assistance for medication. Complaints about back pain and states it' s being relieved by the medication she is getting right now. Denies chest pain, palpitations, headaches, dizziness. Denies fevers, chills, n/v/d. Denies dysuria. Hospital Course Patient is a 61-year-old female with a PMH of HTN, COPD and Tobacco Abuse presented to the ER with complaints of SOB and wheezing. Diagnosed with COPD exacerbation. Patient has been seen in the hospital for chronic respiratory failure with acute exacerbation and hypoxia. Chest x-ray showed 1. Underlying his semen bolus change. 2. No evidence of pneumonia. Patient has been started on Solu-Medrol IV, DuoNeb's Mucinex and Symbicort. She also started on Levaquin which she needs to continue and complete for 7 days. Solu- Medrol switch over to prednisone 20 mg twice a day 5 days in the outpatient. She passed her walk test. Patient was counseled significantly on tobacco use. Start on nicotine patch. Significantly improved. Discussed with patient compliance with medication. Will provide assistance for medication acquisition. Patient has met maximal benefits of hospitalization. Clinically stable for discharge. Pt Condition on Discharge: Stable Discharge Disposition: Discharge Home Discharge Time: <= 30 minutes Discharge Instructions DIET: Follow Instructions for: Heart Healthy Diet Activities you can perform: Regular-No Restrictions Activities to Avoid: Driving Follow up Referrals: PCP Follow-up - 2 Weeks New Medications: Prednisone (Prednisone) 20 Mg Tab 20 MG PO BID for Broncospasm for 5 Days, #10 TAB 0 Refills Folic Acid (Folic Acid) 1 Mg Tablet 1 MG PO DAILY for Nutritional Supplement, #30 TAB Levofloxacin (Levaquin) 750 Mg Tablet 750 MG PO DAILY@1800 for COPD EXAC, #6 TAB Multiple Vitamins W/ Minerals (Thera M Plus) 1 Tab 1 TAB PO DAILY for Nutritional Supplement, #30 TAB Thiamine HCl (Gnp Vitamin B-1) 100 Mg Tab 100 MG PO DAILY for Nutritional Supplement, #30 TAB [Albuterol-Ipratropium Neb] () 1 AMPULE NEBU 1 AMPULE NEB Q4HR WHILE AWAKE NEB, #100 AMPULE [Budeson-Formot 160-4.5 Mcg Inh] () 60 PUFF AERO 2 PUFF INH Q12HR, #1 INHALER Continued Medications: Albuterol 8.5 GM Inh (Proair Hfa 8.5 GM Inh) 90 Mcg/Act Aer 2 PUFF INH Q4-6H PRN for SHORTNESS OF BREATH, #1 INHALER 108 mcg/actuation Hydrocodone-Acetaminophen ([place]) 10-325 Mg Tab 1 TAB PO Q8HR PRN for PAIN, TAB 0 Refills Lisinopril (Lisinopril) 20 Mg Tab 20 MG PO DAILY, #30 TAB 0 Refills Loratadine (Claritin) 10 Mg Cap 10 MG PO DAILY for Allergy Management, CAP 0 Refills Lorazepam (Ativan) 0.5 Mg Tab 0.5 MG PO DAILY PRN for ANXIETY AND/OR AGITATION, TAB 0 Refills Lesley Phan Apr 04, 2017 16:00
--- NOTE | 2017-04-04 16:01 | HHI.DCPOC ---
Discharge Care Plan Diagnosis: (1) HTN (hypertension) (2) Tobacco abuse (3) COPD (chronic obstructive pulmonary disease) Your Health Problems Are: Shortness of Breath Goals to Promote Your Health * To prevent worsening of your condition and complications * To maintain your health at the optimal level Directions to Meet Your Goals Take your medications as prescribed Follow your dietary instruction Follow activity as directed Keep your appointments as scheduled Take your immunizations and boosters as scheduled If your symptoms worsen call your PCP, if no PCP go to Urgent Care Center or Emergency Room Smoking is Dangerous to Your Health. Avoid second hand smoke Call the 24-hour hour crisis hotline for domestic abuse at Lesley Phan Apr 04, 2017 16:01
[2017-04-05] MEDS ORDERED: REMOVE OLD PATCH T-DERMAL SCH (09:00)
== END 2017-04-04 16:40 | disposition home or self-care (01) | DRG 189 ==
LOC: NEPC 13:24 → NEDA 19:18 → OBSVTOIN 19:26 → NEPFCDU 20:22
PROVIDERS: ADMIT Hospitalist; ATTEND Hospitalist
DX: J96.21 Acute and chronic respiratory failure with hypoxia (principal); J43.9 Emphysema, unspecified; I10 Essential (primary) hypertension; F41.9 Anxiety disorder, unspecified; F17.210 Nicotine dependence, cigarettes, uncomplicated
CPT/HCPCS: 71046; 80048; 80053; 82550; 82948; 83735; 84484; 85025; 85610; 85730; 93005; 94618; 94640; 94664; 96361; 96374; J1650; J2920; J2930; J7030

== ENCOUNTER 2017-04-27 17:18 | Observation (INO) | payer SELFPAY ==
[~2017-04-27] VITALS: Ht 165.1 cm; Wt 45.0 kg
[~2017-04-27 17:18] MED LIST changes: +Albuterol-Ipratropium Neb NEB; +Budeson-Formot 160-4.5 Mcg Inh INH; -DOXY100C PO; +FOLI1TAB6 PO; +LEVA750T9 PO; +LORA-392 PO; -MEDR4PAK PO; +PRED20 PO; +THERM PO; +THIA100 PO
[2017-04-27 17:19] VITALS: BP 156/100; PULSE 104; RESP 20; TEMP 98.7; O2SAT 95
--- NOTE | 2017-04-27 18:51 | RADRPT ---
EXAM DATE/TIME: 04/27/2017 17:57 [facility] COMPARISON: CHEST PA & LAT, April 02, 2017, 14:00. INDICATIONS : Shortness of breath. MEDICAL HISTORY : Hypertension. Chronic obstructive pulmonary disease. SURGICAL HISTORY : None. ENCOUNTER: Initial ACUITY: >1 year PAIN SCORE: 0/10 LOCATION: Bilateral chest FINDINGS: Lungs are hyperexpanded with diffuse interstitial prominence similar to prior exam. There are no new focal pleural or parenchymal opacities. Cardiomediastinal contours are within normal limits. Remainde r of exam is unchanged. CONCLUSION: 1. Stable changes of obstructive pulmonary disease. 2. No acute abnormality or significant interval change. Bryan Baldwin MD on April 27, 2017 at 18:49 Board Certified Radiologist. This report was verified electronically.
[2017-04-27 18:54] LABS: BASOPHIL % 0.1 % (0.0-2.0); EOSINOPHIL # 0.2 TH/MM3 (0-0.4); EOSINOPHIL % 3.4 % (0.0-4.0); HEMATOCRIT 42.7 % (35.0-46.0); LYMPH % 19.8 % (9.0-44.0); LYMPHOCYTE # 1.2 TH/MM3 (1.0-4.8); MEAN CELL VOLUME 102.1 FL (80.0-100.0); MEAN CORPUSCULAR HEMOGLOBIN 35.8 PG (27.0-34.0); MEAN CORPUSCULAR HGB CONC 35.1 % (32.0-36.0); MEAN PLATELET VOLUME 8.3 FL (7.0-11.0); MONO % 7.3 % (0.0-8.0); MONOCYTE # 0.4 TH/MM3 (0-0.9); NEUT % 69.4 % (16.0-70.0); PLATELET COUNT 222 TH/MM3 (150-450); RED BLOOD COUNT 4.19 MIL/MM3 (4.00-5.30); RED CELL DISTRIBUTION WIDTH 14.5 % (11.6-17.2); WHITE BLOOD COUNT 5.8 TH/MM3 (4.0-11.0)
[2017-04-27] MEDS ORDERED: methylPREDNISolone SOD SUCC 125 MG/2 ML VIAL IV PUSH ONE (19:15)
[2017-04-27] MEDS ORDERED: SODIUM CHLORIDE 0.9% FLUSH 10 ML FLUSH IVF PRN (19:15)
[2017-04-27 19:17] LABS: BICARBONATE 30.7 MEQ/L (21.0-32.0); CALCIUM 9.1 MG/DL (8.5-10.1); CREATININE 0.49 MG/DL (0.50-1.00)
[2017-04-27 19:21] VITALS: O2SAT 99
[2017-04-27 19:53] LABS: MAGNESIUM 2.1 MG/DL (1.5-2.5)
[2017-04-27] MEDS: RESP: ALBUTEROL 2.5 MG/IPRATROPIUM 0.5 MG NEB (SCH) INH ×3 (19:54→20:54)
[2017-04-27 19:55] LABS: TROPONIN I LESS THAN 0.02 NG/ML (0.02-0.05)
--- NOTE | 2017-04-27 19:59 | PD ---
HPI Chief Complaint: Respiratory Symptoms Time Seen by Provider: 19:15 Travel History International Travel<30 days: No Contact w/Intl Traveler<30days: No Traveled to known affect area: No History of Present Illness HPI 62-year-old female presents to the emergency department by private transportation for evaluation of progressively worsening shortness of breath 2 days. Patient has known COPD with ongoing tobacco use. Patient was recently hospitalized for exacerbation of COPD and hypoxemia. Patient was discharged and completed a course of oral antibiotic 1 week ago. Patient was also discharged on prednisone and is currently denying any redness around use and states that she has used her rescue inhaler and albuterol nebulized treatments at home frequently in the last 48 hours without symptom relief. Patient is not on supplemental oxygen at home. Patient denies any patient denies fever. Patient had no chest pain. Patient does not report any referred neck jaw back shoulder or arm or abdominal pain. Patient does not report any known fever however states that she does take aspirin frequently around the clock for generalize aches and pains that are typically 4/10 in intensity. Patient denies productive cough. No report of lower extremity pain or swelling. No report of orthopnea. Patient does complain of dyspnea at rest and with exertion. PFSH Past Medical History Narrative Medical Hypertension COPD tobacco use alcohol use; nursing notes reviewed Hx Anticoagulant Therapy: Yes (ASA) Asthma: Yes Blood Disorders: No Cancer: No Cardiovascular Problems: Yes (HTN) COPD: Yes Diabetes: No Diminished Hearing: No Endocrine: No Gastrointestinal Disorders: No Genitourinary: No Hypertension: Yes Immune Disorder: No Implanted Vascular Access Dvce: No Musculoskeletal: No Neurologic: No Psychiatric: No Reproductive: No Respiratory: Yes ?: Not Menopausal: Yes Past Surgical History Surgical History: No Previous Surgery Other Surgery: No Social History Alcohol Use: Yes (2-3 beers per day) Tobacco Use: No (3-4 cigarettes) Substance Use: No Allergies-Medications (Allergen,Severity, Reaction): Coded Allergies: No Known Allergies (Verified Allergy, Unknown, 04/27/17) Reported Meds & Prescriptions Reported Meds & Active Scripts Active [Budeson-Formot 160-4.5 Mcg Inh] 60 PUFF Aero 2 Puff INH Q12HR Thera M Plus (Multivitamins/Minerals Therapeutic) 1 Tab 1 Tab PO DAILY Gnp Vitamin B-1 (Thiamine HCl) 100 Mg Tab 100 Mg PO DAILY Folic Acid 1 Mg Tablet 1 Mg PO DAILY [Albuterol-Ipratropium Neb] 1 AMPULE Nebu 1 Ampule NEB Q4HR WHILE AWAKE NEB Proair Hfa 8.5 GM Inh (Albuterol Sulfate) 90 Mcg/Act Aer 2 Puff INH Q4-6H PRN 108 mcg/actuation Reported Ativan (Lorazepam) 0.5 Mg Tab 0.5 Mg PO DAILY PRN Lisinopril 20 Mg Tab 20 Mg PO DAILY Claritin (Loratadine) 10 Mg Cap 10 Mg PO DAILY [place] (Hydrocodone-Acetaminophen) 10-325 Mg Tab 1 Tab PO Q8HR PRN Review of Systems Except as stated in HPI: all other systems reviewed are Neg General / Constitutional: No: Fever, Chills HENT: No: Congestion Cardiovascular: No: Chest Pain or Discomfort Respiratory: Positive: Cough, Shortness of Breath, Wheezing Gastrointestinal: No: Nausea, Vomiting, Abdominal Pain Genitourinary: No: Dysuria Musculoskeletal: No: Pain Skin: No Rash Neurologic: Positive: Weakness Psychiatric: Positive: Anxiety Hematologic/Lymphatic: No: Lymph Node Enlargement Physical Exam Narrative GENERAL: Elderly appearing thin female with moderate respiratory distress and work of breathing room air O2 saturations 92-95% SKIN: Warm and dry. HEAD: Normocephalic. EYES: No scleral icterus. No injection or drainage. NECK: Supple, trachea midline. No JVD or lymphadenopathy. CARDIOVASCULAR: Increased regular rate and rhythm without murmurs, gallops, or rubs. RESPIRATORY: Breath sounds equal bilaterally diminished with expiratory wheezing bilaterally and accessory muscle use. GASTROINTESTINAL: Abdomen soft, non-tender, nondistended. MUSCULOSKELETAL: No cyanosis, or edema. BACK: Nontender without obvious deformity. No CVA tenderness. Data Data Last Documented VS Vital Signs Date Time Temp Pulse Resp B/P (MAP) Pulse Ox O2 Delivery O2 Flow Rate FiO2 04/27/17 19:21 99 Nasal Cannula 2.00 04/27/17 17:19 98.7 104 20 Orders Orders Complete Blood Count With Diff (04/27/17 17:45) Basic Metabolic Panel (Bmp) (04/27/17 17:45) Chest, Pa & Lat (04/27/17 17:45) Blood Culture (04/27/17 17:45) Iv Access Insert/Monitor (04/27/17 17:45) Ecg Monitoring (04/27/17 17:45) Oxygen Administration (04/27/17 17:45) Oximetry (04/27/17 17:45) Electrocardiogram (04/27/17 17:45) Sodium Chloride 0.9% Flush (Ns Flush) (04/27/17 19:15) Methylprednisolone So Succ Inj (Solumedr (04/27/17 19:15) Albuterol-Ipratropium Neb (Duoneb Neb) (04/27/17 19:15) Troponin I (04/27/17 19:15) Magnesium (Mg) (04/27/17 19:15) Lorazepam Inj (Ativan Inj) (04/27/17 20:00) Labs Laboratory Tests Test 04/27/17 18:20 04/27/17 19:20 White Blood Count 5.8 TH/MM3 Red Blood Count 4.19 MIL/MM3 Hemoglobin 15.0 GM/DL Hematocrit 42.7 % Mean Corpuscular Volume 102.1 FL Mean Corpuscular Hemoglobin 35.8 PG Mean Corpuscular Hemoglobin Concent 35.1 % Red Cell Distribution Width 14.5 % Platelet Count 222 TH/MM3 Mean Platelet Volume 8.3 FL Neutrophils (%) (Auto) 69.4 % Lymphocytes (%) (Auto) 19.8 % Monocytes (%) (Auto) 7.3 % Eosinophils (%) (Auto) 3.4 % Basophils (%) (Auto) 0.1 % Neutrophils # (Auto) 4.0 TH/MM3 Lymphocytes # (Auto) 1.2 TH/MM3 Monocytes # (Auto) 0.4 TH/MM3 Eosinophils # (Auto) 0.2 TH/MM3 Basophils # (Auto) 0.0 TH/MM3 CBC Comment DIFF FINAL Differential Comment Blood Urea Nitrogen 13 MG/DL Creatinine 0.49 MG/DL Random Glucose 89 MG/DL Calcium Level 9.1 MG/DL Sodium Level 136 MEQ/L Potassium Level 3.5 MEQ/L Chloride Level 100 MEQ/L Carbon Dioxide Level 30.7 MEQ/L Anion Gap 5 MEQ/L Estimat Glomerular Filtration Rate 128 ML/MIN Magnesium Level 2.1 MG/DL Troponin I LESS THAN 0.02 NG/ML MDM Medical Decision Making Medical Screen Exam Complete: Yes Emergency Medical Condition: Yes Medical Record Reviewed: Yes Interpretation(s) EKG sinus tachycardia rate 100 marked artifact is present at baseline no acute ST elevation injury pattern change noted however T waves are prominent and QRS anteroseptally is noted on tracing age-indeterminate anteroseptal changes Last Impressions Chest X-Ray 04/27/17 2758 Signed Impressions: Service Date/Time: Thursday, April 27, 2017 17:57 - CONCLUSION: 1. Stable changes of obstructive pulmonary disease. 2. No acute abnormality or significant interval change. Bryan Baldwin MD Differential Diagnosis Dyspnea dyspnea, exacerbation COPD, bronchitis, pneumonia, PE, CHF, ACS, AL Narrative Course Patient placed on cardiac cath rn with continuous pulse oximetry supplemental oxygen administered 2 L/min nasal cannula DuoNeb updrafts ordered 3 along with Solu-Medrol Patient is anxious and typically takes Ativan daily therefore one-time dose of Ativan 0.5 mg IV administered Patient lab values are found patient advisor found to be grossly within normal range troponin I is less than 0.02 Patient will need to be admitted for exacerbation COPD Physician Communication Physician Communication call placed to Dr Cade Diagnosis Primary Impression: COPD (chronic obstructive pulmonary disease) Admitting Information Admitting Physician Requests: Observation Shannon Peterson MD Apr 27, 2017 19:59
[2017-04-27] MEDS ORDERED: LORazepam 2 MG/ML VIAL IV PUSH ONE (20:00)
--- NOTE | 2017-04-27 20:21 | HHI.HP ---
HPI Service [facility] Primary Care Physician Breanna Juárez MD (Vipin) Admission Diagnosis Diagnoses: (1) COPD (chronic obstructive pulmonary disease) Diagnosis: Principal (2) HTN (hypertension) Diagnosis: Principal (3) Alcohol use Diagnosis: Principal (4) Tobacco abuse Diagnosis: Principal Travel History International Travel<30 Days: No Contact w/Intl Traveler <30 Da: No Traveled to Known Affected Are: No History of Present Illness This is a 62-year-old female with a PMH of HTN, COPD, Alcohol Use and Tobacco Abuse who presented to ER with complaints of SOB and wheezing x4 days. Recent admit 04/02-04/04/17 for similar complaints, found to have COPD Exacerbation w/ Hypoxia. States she was doing well until 4 days ago when she ran out of her MDI. Notes progressive SOB and wheezing since then. SOB moderate to severe, associated w/ non-productive cough, worse w/ movement/activity. Does admit to ongoing tobacco. On arrival, BP 156/100, HR 104, O2 sat 95% on RA, Afebrile. CBC at baseline. Chemistry essentially unremarkable. Troponin negative. CXR with no acute findings. S/p Solu-Medrol in ER however persistent SOB/wheezing. Review of Systems Except as stated in HPI: all other systems reviewed are Neg ROS: 14 point review of systems otherwise negative. Past Family Social History Past Medical History PMH: HTN, COPD, Alcohol Use and Tobacco Abuse Past Surgical History PAST SURGICAL HISTORY: None Allergies: Coded Allergies: No Known Allergies (Verified Allergy, Unknown, 04/27/17) Family History PAST FAMILY HISTORY: Reviewed. No h/o DM or CAD Social History PAST SOCIAL HISTORY: Drinks 2-3 beers per day. Positive tobacco. Negative for drugs. Physical Exam Vital Signs Vital Signs Date Time Temp Pulse Resp B/P (MAP) Pulse Ox O2 Delivery O2 Flow Rate FiO2 04/27/17 19:21 99 Nasal Cannula 2.00 04/27/17 19:21 99 Nasal Cannula 2.00 04/27/17 17:19 98.7 104 20 156/100 (118) 95 Room Air Physical Exam PE: GENERAL: Thin middle-aged white female in no acute distress. Dyspnea with speech. HEENT: PERRLA, EOMI. No scleral icterus or conjunctival pallor. No lid lag or facial droop. CARDIOVASCULAR: Regular rate and rhythm. No obvious murmurs to auscultation. No chest tenderness to palpation. RESPIRATORY: No obvious rhonchi, occasional wheezing. Clear to auscultation. Decreased breath sounds bilaterally. GASTROINTESTINAL: Abdomen soft, non-tender, nondistended. BS normal. MUSCULOSKELETAL: Extremities without clubbing, cyanosis, or edema. No obvious deformities. NEUROLOGICAL: Awake, alert and oriented x4. No focal neurologic deficits. Moving both upper and lower extremities spontaneously. Laboratory Laboratory Tests Test 04/27/17 18:20 04/27/17 19:20 White Blood Count 5.8 Red Blood Count 4.19 Hemoglobin 15.0 Hematocrit 42.7 Mean Corpuscular Volume 102.1 Mean Corpuscular Hemoglobin 35.8 Mean Corpuscular Hemoglobin Concent 35.1 Red Cell Distribution Width 14.5 Platelet Count 222 Mean Platelet Volume 8.3 Neutrophils (%) (Auto) 69.4 Lymphocytes (%) (Auto) 19.8 Monocytes (%) (Auto) 7.3 Eosinophils (%) (Auto) 3.4 Basophils (%) (Auto) 0.1 Neutrophils # (Auto) 4.0 Lymphocytes # (Auto) 1.2 Monocytes # (Auto) 0.4 Eosinophils # (Auto) 0.2 Basophils # (Auto) 0.0 CBC Comment DIFF FINAL Differential Comment Blood Urea Nitrogen 13 Creatinine 0.49 Random Glucose 89 Calcium Level 9.1 Sodium Level 136 Potassium Level 3.5 Chloride Level 100 Carbon Dioxide Level 30.7 Anion Gap 5 Estimat Glomerular Filtration Rate 128 Magnesium Level 2.1 Troponin I LESS THAN 0.02 Date/Time Source Procedure Growth Status 04/27/17 18:20 Blood Peripheral Aerobic Blood Culture Pending Received 04/27/17 18:20 Blood Peripheral Anaerobic Blood Culture Pending Received Result Diagram: 04/27/17181904/27/171819 Caprini VTE Risk Assessment Caprini VTE Risk Assessment: No/Low Risk (score <= 1) Caprini Risk Assessment Model Point Value = 1 Point Value = 2 Point Value = 3 Point Value = 5 Age 41-60 Minor surgery BMI > 25 kg/m2 Swollen legs Varicose veins or History of unexplained or recurrent spontaneous Oral contraceptives or hormone replacement Sepsis (< 1 month) Serious lung disease, including pneumonia (< 1 month) Abnormal pulmonary function Acute myocardial infarction Congestive heart failure (< 1 month) History of inflammatory bowel disease Medical patient at bed rest Age 61-74 Arthroscopic surgery Major open surgery (> 45 min) Laparoscopic surgery (> 45 min) Malignancy Confined to bed (> 72 hours) Immobilizing plaster cast Central venous access Age >= 75 History of VTE Family history of VTE Factor V Leiden Prothrombin [id number] Lupus anticoagulant Anticardiolipin antibodies Elevated serum homocysteine Heparin-induced thrombocytopenia Other congenital or acquired thrombophilia Stroke (< 1 month) Elective arthroplasty Hip, pelvis, or leg fracture Acute spinal cord injury (< 1 month) Prophylaxis Regimen Total Risk Factor Score Risk Level Prophylaxis Regimen 0-1 Low Early ambulation 2 Moderate Order ONE of the following: *Sequential Compression Device (SCD) *Heparin 5000 units SQ BID 3-4 Higher Order ONE of the following medications: *Heparin 5000 units SQ TID *Enoxaparin/Lovenox 40 mg SQ daily (WT < 150 kg, CrCl > 30 mL/min) *Enoxaparin/Lovenox 30 mg SQ daily (WT < 150 kg, CrCl > 10-29 mL/min) *Enoxaparin/Lovenox 30 mg SQ BID (WT < 150 kg, CrCl > 30 mL/min) AND/OR *Sequential Compression Device (SCD) 5 or more Highest Order ONE of the following medications: *Heparin 5000 units SQ TID (Preferred with Epidurals) *Enoxaparin/Lovenox 40 mg SQ daily (WT < 150 kg, CrCl > 30 mL/min) *Enoxaparin/Lovenox 30 mg SQ daily (WT < 150 kg, CrCl > 10-29 mL/min) *Enoxaparin/Lovenox 30 mg SQ BID (WT < 150 kg, CrCl > 30 mL/min) AND *Sequential Compression Device (SCD) Assessment and Plan Problem List: (1) COPD (chronic obstructive pulmonary disease) ICD Code: J44.9 - Chronic obstructive pulmonary disease, unspecified Status: Acute (2) HTN (hypertension) ICD Code: I10 - Essential (primary) hypertension (3) Alcohol use ICD Code: Z78.9 - Other specified health status (4) Tobacco abuse ICD Code: Z72.0 - Tobacco use Assessment and Plan A/P: 1. COPD: Chronic Respiratory Failure w/ Acute Exacerbation. Moderate-Severe. O2 sat stable, however ongoing SOB/wheezing despite treatment. Recent admit for same. Afebrile. CXR w/ no acute findings, images reviewed by me. Solu- Medrol 40mg IV q6, Symbicort, Mucinex, DuoNeb q4 and q2h prn. Start Levaquin for empiric tx of atypical PNA. Monitor O2. 2. HTN: Uncontrolled. BP 150-160's, Resume home Lisinopril, monitor BP, antihypertensives as needed for BP >180 3. Alcohol Use: Drinks 2-3 beers/day. Start on CIWA, Seizure Precautions, resume home Thiamine/Folate/MVT replacement. 4. Tobacco Abuse: Counselled. NicoDerm prn if needed. 5. DVT Prophylaxis: SCD/Teds. 6. Social work for d/c planning as needed. 7. Case discussed w/ ER physician at length, labs/records/imaging reviewed by me. Liseth Cade MD Apr 27, 2017 20:21
[2017-04-27] MEDS ORDERED: ACETAMINOPHEN 325 MG TAB PO PRN (20:30)
[2017-04-27] MEDS ORDERED: SODIUM CHLORIDE 0.9% FLUSH 10 ML FLUSH IV FLUSH PRN (20:30)
[2017-04-27] MEDS ORDERED: RESP: ALBUTEROL 2.5 MG/IPRATROPIUM 0.5 MG NEB (PRN) NEB (20:30)
[2017-04-27 20:55] VITALS: BP 156/83; PULSE 110; RESP 22; O2SAT 99
[2017-04-27] MEDS: SODIUM CHLORIDE 0.9% FLUSH 10 ML FLUSH IV FLUSH SCH (21:31)
[2017-04-27] MEDS: BUDESONIDE-FORMOTEROL 160/4.5 MCG INHALER INH SCH (21:31)
[2017-04-27] MEDS ORDERED: LORazepam 0.5 MG TAB PO PRN (22:00)
[2017-04-27] MEDS ORDERED: SENNOSIDES 8.6 MG TAB PO PRN (22:00)
[2017-04-27] MEDS ORDERED: MORPHINE SULFATE 2 MG/ML INJ IV PUSH PRN (22:00)
[2017-04-27] MEDS ORDERED: MAGNESIUM HYDROXIDE SUSP 30 ML CUP PO PRN (22:00)
[2017-04-27] MEDS ORDERED: ONDANSETRON HCL 4 MG/2 ML VIAL IVP PRN (22:00)
[2017-04-27] MEDS ORDERED: LACTULOSE SYRUP 20 GM/30 ML CUP PO PRN (22:00)
[2017-04-27] MEDS ORDERED: BISACODYL 10 MG SUPP RECTAL PRN (22:00)
[2017-04-27 22:49] VITALS: BP 125/78; PULSE 104; RESP 17; TEMP 98; O2SAT 96
[2017-04-27 23:00] VITALS: PULSE 108
[2017-04-27] MEDS ORDERED: LORazepam 1 MG TAB PO PRN (23:00)
[2017-04-27] MEDS ORDERED: LORazepam 2 MG/ML VIAL IV PUSH PRN ×4 (23:00)
[2017-04-27] MEDS ORDERED: LORazepam 2 MG TAB PO PRN (23:00)
[2017-04-27] MEDS ORDERED: HALOPERIDOL LACTATE 5 MG/ML AMP IM PRN (23:00)
[2017-04-27] MEDS ORDERED: FLUMAZENIL 0.5 MG/5 ML VIAL IV PUSH PRN (23:00)
--- NOTE | 2017-04-27 23:01 | EKG ---
Date Performed: 04/27/2017 Time Performed: 19:32:10 PTAGE: 62 years EKG: SINUS TACHYCARDIA RIGHT ATRIAL ENLARGEMENT POSSIBLE LEFT ATRIAL ENLARGEMENT ST ELEVATION, P ROBABLY EARLY REPOLARIZATION ABNORMAL ECG PREVIOUS TRACING : 04/02/2017 14.54 No significant change from previous tracing noted. DOCTOR: Christoph Mosley Interpretating Date/Time 04/27/2017 23:01:16
[2017-04-27] MEDS: DOCUSATE SODIUM 50 MG/SENNA 8.6 MG TAB PO SCH (23:27)
[2017-04-27] MEDS: methylPREDNISolone SOD SUCC 40 MG/1 ML VIAL IV PUSH SCH (23:27)
[2017-04-27] MEDS: LEVOFLOXACIN 750 MG PREMIX INJ 150 ML IV SCH (23:27)
[2017-04-28 04:22] VITALS: BP 116/76; PULSE 100; RESP 17; TEMP 98.1; O2SAT 96
[2017-04-28] MEDS: methylPREDNISolone SOD SUCC 40 MG/1 ML VIAL IV PUSH SCH ×4 (05:50→23:02)
[2017-04-28] MEDS: RESP: ALBUTEROL 2.5 MG/IPRATROPIUM 0.5 MG NEB (SCH) NEB ×4 (07:27→19:29)
[2017-04-28 07:32] VITALS: O2SAT 97
[2017-04-28 07:43] VITALS: BP 113/76; PULSE 103; RESP 18; TEMP 97.6; O2SAT 96
[2017-04-28] MEDS: BUDESONIDE-FORMOTEROL 160/4.5 MCG INHALER INH SCH ×2 (08:01→21:27)
[2017-04-28] MEDS: SODIUM CHLORIDE 0.9% FLUSH 10 ML FLUSH IV FLUSH SCH ×2 (08:01→21:27)
[2017-04-28] MEDS: THIAMINE HCL 100 MG TAB PO SCH (08:02)
[2017-04-28] MEDS: LISINOPRIL 20 MG TAB PO SCH (08:02)
[2017-04-28] MEDS: MULTIVITAMINS/MINERALS THERAPEUTIC TAB PO SCH (08:02)
[2017-04-28] MEDS: LORATADINE 10 MG TAB PO SCH (08:02)
[2017-04-28] MEDS: FOLIC ACID 1 MG TAB PO SCH (08:02)
[2017-04-28] MEDS: ACETAMINOPHEN/HYDROcodone 325 MG/5 MG TAB PO PRN ×2 (08:04→23:02)
[2017-04-28 08:32] LABS: AUTOMATED NEUTROPHIL # 2.6 TH/MM3 (1.8-7.7); BASOPHIL % 0.1 % (0.0-2.0); HEMATOCRIT 41.3 % (35.0-46.0); HEMOGLOBIN 14.5 GM/DL (11.6-15.3); LYMPH % 9.2 % (9.0-44.0); LYMPHOCYTE # 0.3 TH/MM3 (1.0-4.8); MEAN CELL VOLUME 100.6 FL (80.0-100.0); MEAN CORPUSCULAR HEMOGLOBIN 35.2 PG (27.0-34.0); MEAN PLATELET VOLUME 8.1 FL (7.0-11.0); MONO % 0.7 % (0.0-8.0); PLATELET COUNT 210 TH/MM3 (150-450); RED CELL DISTRIBUTION WIDTH 14.1 % (11.6-17.2); WHITE BLOOD COUNT 2.9 TH/MM3 (4.0-11.0)
[2017-04-28] MEDS: DOCUSATE SODIUM 50 MG/SENNA 8.6 MG TAB PO SCH ×2 (09:00→21:08)
[2017-04-28 09:02] LABS: ALBUMIN 3.8 GM/DL (3.4-5.0); AST (GOT) 13 U/L (15-37); BICARBONATE 28.3 MEQ/L (21.0-32.0); BLOOD UREA NITROGEN 12 MG/DL (7-18); CALCIUM 9.5 MG/DL (8.5-10.1); CHLORIDE 101 MEQ/L (98-107); CREATININE 0.44 MG/DL (0.50-1.00); GLOMERULAR FILTRATION RATE 145 ML/MIN (>89); GLUCOSE,RANDOM 120 MG/DL (74-106); SODIUM (NA) 136 MEQ/L (136-145)
[2017-04-28 09:03] LABS: ALT (GPT) 16 U/L (10-53)
[2017-04-28 09:05] LABS: ALKALINE PHOSPHATASE 87 U/L (45-117); TOTAL BILIRUBIN ADULT 0.5 MG/DL (0.2-1.0); TOTAL PROTEIN 7.1 GM/DL (6.4-8.2)
[2017-04-28 11:15] VITALS: BP 121/76; PULSE 105; RESP 18; TEMP 98.3; O2SAT 95
--- NOTE | 2017-04-28 11:24 | HHI.PR ---
Subjective Remarks Follow-up COPD exacerbation, tachycardia. Patient states that she still becomes significantly short of breath with any activity. Denies chest pain. Objective Vitals Vital Signs Date Time Temp Pulse Resp B/P (MAP) Pulse Ox O2 Delivery O2 Flow Rate FiO2 04/28/17 11:15 98.3 105 18 121/76 (91) 95 04/28/17 09:28 18 04/28/17 07:43 97.6 103 18 113/76 (88) 96 04/28/17 07:32 97 Nasal Cannula 2.00 04/28/17 04:22 98.1 100 17 116/76 (89) 96 04/27/17 23:00 108 04/27/17 22:49 98.0 104 17 125/78 (94) 96 04/27/17 21:47 04/27/17 20:55 110 22 156/83 (107) 99 Nasal Cannula 2.00 04/27/17 19:21 99 Nasal Cannula 2.00 04/27/17 19:21 99 Nasal Cannula 2.00 04/27/17 17:19 98.7 104 20 156/100 (118) 95 Room Air Result Diagram: 04/28/17 0815 04/28/17 0815 Imaging Last Impressions Chest X-Ray 04/27/17 1745 Signed Impressions: Service Date/Time: Thursday, April 27, 2017 17:57 - CONCLUSION: 1. Stable changes of obstructive pulmonary disease. 2. No acute abnormality or significant interval change. Bryan Baldwin MD Objective Remarks General: No acute distress. Heart: Tachycardia. Lungs: Decreased breath sounds throughout. Scattered wheeze. Breathing is nonlabored. Abdomen: Soft, nontender, nondistended. Extremities: No lower extremity edema. Psych: Alert and oriented. Procedures None Urinary Catheter: No Vascular Central Line Catheter: No A/P Problem List: (1) COPD (chronic obstructive pulmonary disease) ICD Code: J44.9 - Chronic obstructive pulmonary disease, unspecified Status: Acute (2) HTN (hypertension) ICD Code: I10 - Essential (primary) hypertension (3) Alcohol use ICD Code: Z78.9 - Other specified health status (4) Tobacco abuse ICD Code: Z72.0 - Tobacco use Assessment and Plan 1. COPD exacerbation: Continue Solu-Medrol, Symbicort, DuoNeb, Levaquin. Continue supplemental oxygen. 2. Hypertension: Continue lisinopril. 3. Tachycardia: Likely secondary to dyspnea, anxiety. Monitor on telemetry. 4. Tobacco abuse: Counseled to quit smoking. 5. History of alcohol abuse: Continue CIWA protocol, seizure precautions, thiamine, folic acid, multivitamin. 6. Anxiety: Ativan as needed. 7. DVT prophylaxis: YECENIA Pepe. Discharge Planning Pending further clinical improvement. Alex Ogden MD Apr 28, 2017 11:24
[2017-04-28] MEDS: LORazepam 0.5 MG TAB PO PRN (11:35)
[2017-04-28 15:31] VITALS: BP 111/66; PULSE 106; RESP 18; TEMP 98.5; O2SAT 95
[2017-04-28] MEDS: LEVOFLOXACIN 750 MG PREMIX INJ 150 ML IV SCH (21:27)
[2017-04-28 23:32] VITALS: BP 125/66; PULSE 101; RESP 18; O2SAT 95
[2017-04-29] VITALS (9 sets, daily range): BP systolic 99–125; BP diastolic 56–84; PULSE 96–117; RESP 18–20; TEMP 96.2–98.3; O2SAT 95–100
[2017-04-29 04:50] LABS: AUTOMATED NEUTROPHIL # 6.2 TH/MM3 (1.8-7.7); BASOPHIL % 0.1 % (0.0-2.0); HEMATOCRIT 37.1 % (35.0-46.0); LYMPHOCYTE # 0.3 TH/MM3 (1.0-4.8); MEAN CORPUSCULAR HEMOGLOBIN 35.4 PG (27.0-34.0); MEAN PLATELET VOLUME 8.4 FL (7.0-11.0); MONO % 1.5 % (0.0-8.0); MONOCYTE # 0.1 TH/MM3 (0-0.9); NEUT % 94.4 % (16.0-70.0); PLATELET COUNT 195 TH/MM3 (150-450); RED BLOOD COUNT 3.68 MIL/MM3 (4.00-5.30); RED CELL DISTRIBUTION WIDTH 14.4 % (11.6-17.2); WHITE BLOOD COUNT 6.6 TH/MM3 (4.0-11.0)
[2017-04-29 05:01] LABS: BICARBONATE 29.5 MEQ/L (21.0-32.0); CALCIUM 8.8 MG/DL (8.5-10.1); CREATININE 0.41 MG/DL (0.50-1.00)
[2017-04-29] MEDS: methylPREDNISolone SOD SUCC 40 MG/1 ML VIAL IV PUSH SCH (06:09)
[2017-04-29] MEDS: RESP: ALBUTEROL 2.5 MG/IPRATROPIUM 0.5 MG NEB (SCH) NEB ×4 (07:46→19:36)
[2017-04-29] MEDS: LORATADINE 10 MG TAB PO SCH (08:08)
[2017-04-29] MEDS: DOCUSATE SODIUM 50 MG/SENNA 8.6 MG TAB PO SCH ×2 (08:08→20:50)
[2017-04-29] MEDS: LISINOPRIL 20 MG TAB PO SCH (08:09)
[2017-04-29] MEDS: THIAMINE HCL 100 MG TAB PO SCH (08:09)
[2017-04-29] MEDS: MULTIVITAMINS/MINERALS THERAPEUTIC TAB PO SCH (08:09)
[2017-04-29] MEDS: SODIUM CHLORIDE 0.9% FLUSH 10 ML FLUSH IV FLUSH SCH ×2 (08:09→20:48)
[2017-04-29] MEDS: BUDESONIDE-FORMOTEROL 160/4.5 MCG INHALER INH SCH ×2 (08:09→20:48)
[2017-04-29] MEDS: ACETAMINOPHEN/HYDROcodone 325 MG/5 MG TAB PO PRN ×2 (08:09→12:22)
[2017-04-29] MEDS: FOLIC ACID 1 MG TAB PO SCH (08:09)
--- NOTE | 2017-04-29 11:20 | HHI.PR ---
Subjective Remarks Follow up COPD, tachycardia. Patient's respiratory status is improved. Dyspnea improving. No chest pain. Objective Vitals Vital Signs Date Time Temp Pulse Resp B/P (MAP) Pulse Ox O2 Delivery O2 Flow Rate FiO2 04/29/17 09:30 96.2 96 20 125/74 (91) 100 04/29/17 09:22 18 04/29/17 07:46 97 Nasal Cannula 2.00 04/29/17 04:31 97.9 99 18 99/56 (70) 97 04/29/17 04:02 116 04/28/17 23:32 101 18 125/66 (85) 95 04/28/17 15:31 98.5 106 18 111/66 (81) 95 Result Diagram: 04/29/17 0332 04/29/17 0332 Imaging Last Impressions Chest X-Ray 04/27/17 1745 Signed Impressions: Service Date/Time: Thursday, April 27, 2017 17:57 - CONCLUSION: 1. Stable changes of obstructive pulmonary disease. 2. No acute abnormality or significant interval change. Bryan Baldwin MD Objective Remarks General: No acute distress. Heart: Tachycardia. Lungs: Decreased breath sounds throughout. Mild wheeze. Breathing is nonlabored. Abdomen: Soft, nontender, nondistended. Extremities: No lower extremity edema. Psych: Alert and oriented. Procedures None Urinary Catheter: No Vascular Central Line Catheter: No A/P Problem List: (1) COPD (chronic obstructive pulmonary disease) ICD Code: J44.9 - Chronic obstructive pulmonary disease, unspecified Status: Acute (2) HTN (hypertension) ICD Code: I10 - Essential (primary) hypertension (3) Alcohol use ICD Code: Z78.9 - Other specified health status (4) Tobacco abuse ICD Code: Z72.0 - Tobacco use Assessment and Plan 1. COPD exacerbation: Continue Symbicort, DuoNeb, Levaquin. Continue supplemental oxygen as needed. Home oxygen walk test shows no need for home oxygen. 2. Hypertension: Continue lisinopril. 3. Tachycardia: Not improving despite improved respiratory status. May be secondary to Duoneb. Add diltiazem. 4. Tobacco abuse: Counseled to quit smoking. 5. History of alcohol abuse: Continue CIWA protocol, seizure precautions, thiamine, folic acid, multivitamin. 6. Anxiety: Ativan as needed. 7. DVT prophylaxis: YECENIA Pepe. Discharge Planning Pending further clinical improvement. Alex Ogden MD Apr 29, 2017 11:20
[2017-04-29] MEDS: predniSONE 20 MG TAB PO SCH ×2 (12:21→20:50)
[2017-04-29] MEDS: DILTIAZEM HCL 30 MG TAB PO SCH ×3 (12:21→20:50)
[2017-04-29] MEDS: LEVOFLOXACIN 750 MG PREMIX INJ 150 ML IV SCH (20:49)
[2017-04-29] MEDS: LORazepam 0.5 MG TAB PO PRN (20:50)
[2017-04-30] VITALS (7 sets, daily range): BP systolic 99–122; BP diastolic 57–85; PULSE 88–113; RESP 18–19; TEMP 98–99; O2SAT 94–98
[2017-04-30] MEDS: RESP: ALBUTEROL 2.5 MG/IPRATROPIUM 0.5 MG NEB (SCH) NEB ×3 (09:05→15:45)
[2017-04-30] MEDS: BUDESONIDE-FORMOTEROL 160/4.5 MCG INHALER INH SCH (09:33)
[2017-04-30] MEDS: predniSONE 20 MG TAB PO SCH (09:34)
[2017-04-30] MEDS: LORATADINE 10 MG TAB PO SCH (09:34)
[2017-04-30] MEDS: DOCUSATE SODIUM 50 MG/SENNA 8.6 MG TAB PO SCH (09:34)
[2017-04-30] MEDS: SODIUM CHLORIDE 0.9% FLUSH 10 ML FLUSH IV FLUSH SCH (09:34)
[2017-04-30] MEDS: MULTIVITAMINS/MINERALS THERAPEUTIC TAB PO SCH (09:34)
[2017-04-30] MEDS: LISINOPRIL 20 MG TAB PO SCH (09:34)
[2017-04-30] MEDS: FOLIC ACID 1 MG TAB PO SCH (09:34)
[2017-04-30] MEDS: THIAMINE HCL 100 MG TAB PO SCH (09:34)
[2017-04-30] MEDS: DILTIAZEM HCL 30 MG TAB PO SCH ×2 (09:34→12:32)
[2017-04-30] MEDS: ACETAMINOPHEN/HYDROcodone 325 MG/5 MG TAB PO PRN (10:10)
--- NOTE | 2017-04-30 10:26 | HHI.PR ---
Subjective Remarks Follow up COPD, tachycardia. The patient reports that her dyspnea is improving. She feels a little better overall. Objective Vitals Vital Signs Date Time Temp Pulse Resp B/P (MAP) Pulse Ox O2 Delivery O2 Flow Rate FiO2 04/30/17 09:08 96 21 04/30/17 08:03 98.8 107 19 118/85 (96) 94 04/30/17 04:25 98.2 105 18 122/69 (86) 98 04/29/17 20:22 98.3 107 18 119/75 (90) 97 04/29/17 19:37 95 21 04/29/17 18:40 114 04/29/17 16:36 96.4 102 20 124/84 (97) 95 04/29/17 13:31 18 04/29/17 12:40 97.2 117 19 111/71 (84) 97 I/O 04/29/17 04/29/17 04/29/17 04/30/17 04/30/17 04/30/17 07:00 15:00 23:00 07:00 15:00 23:00 Intake Total 120 ml Balance 120 ml Intake Oral 120 ml # Voids 3 Result Diagram: 04/29/17 0332 04/29/17 0332 Imaging Last Impressions Chest X-Ray 04/27/17 1745 Signed Impressions: Service Date/Time: Thursday, April 27, 2017 17:57 - CONCLUSION: 1. Stable changes of obstructive pulmonary disease. 2. No acute abnormality or significant interval change. Bryan Baldwin MD Objective Remarks General: No acute distress. Heart: Tachycardia. Lungs: Mild wheeze. Breathing is nonlabored. Abdomen: Soft, nontender, nondistended. Extremities: No lower extremity edema. Psych: Alert and oriented. Procedures None Urinary Catheter: No Vascular Central Line Catheter: No A/P Problem List: (1) COPD (chronic obstructive pulmonary disease) ICD Code: J44.9 - Chronic obstructive pulmonary disease, unspecified Status: Acute (2) HTN (hypertension) ICD Code: I10 - Essential (primary) hypertension (3) Alcohol use ICD Code: Z78.9 - Other specified health status (4) Tobacco abuse ICD Code: Z72.0 - Tobacco use Assessment and Plan 1. COPD exacerbation: Improved. Continue Symbicort, DuoNeb, Levaquin. Stable on room air. Home oxygen walk test shows no need for home oxygen. 2. Hypertension: Continue lisinopril. 3. Tachycardia: Not improving despite improved respiratory status. May be secondary to Duoneb. Continue diltiazem. 4. Tobacco abuse: Counseled to quit smoking. 5. History of alcohol abuse: Continue CIWA protocol, seizure precautions, thiamine, folic acid, multivitamin. 6. Anxiety: Ativan as needed. 7. DVT prophylaxis: YECENIA Pepe. Discharge Planning Possible discharge home today depending on heart rate control. Alex Ogden MD Apr 30, 2017 10:26
[2017-04-30] MEDS ORDERED: LEVO750T3 PO (15:21)
[2017-04-30] MEDS ORDERED: DILT31TA PO (15:21)
[2017-04-30] MEDS ORDERED: PRED5PAK PO (15:21)
--- NOTE | 2017-04-30 15:21 | HHI.DCPOC ---
Discharge Care Plan Diagnosis: (1) Sinus tachycardia (2) Hypoxia (3) COPD (chronic obstructive pulmonary disease) (4) Tobacco abuse (5) HTN (hypertension) Goals to Promote Your Health * To prevent worsening of your condition and complications * To maintain your health at the optimal level Directions to Meet Your Goals Take your medications as prescribed Follow your dietary instruction Follow activity as directed Keep your appointments as scheduled Take your immunizations and boosters as scheduled If your symptoms worsen call your PCP, if no PCP go to Urgent Care Center or Emergency Room Smoking is Dangerous to Your Health. Avoid second hand smoke Call the 24-hour hour crisis hotline for domestic abuse at Alex Ogden MD Apr 30, 2017 15:21
--- NOTE | 2017-04-30 15:29 | HHI.DS ---
Discharge Summary Admission Date Apr 27, 2017 at 21:05 Discharge Date: Apr 30, 2017 Admitting Diagnosis COPD exacerbation (1) COPD (chronic obstructive pulmonary disease) ICD Code: J44.9 - Chronic obstructive pulmonary disease, unspecified Status: Acute (2) HTN (hypertension) ICD Code: I10 - Essential (primary) hypertension (3) Alcohol use ICD Code: Z78.9 - Other specified health status (4) Tobacco abuse ICD Code: Z72.0 - Tobacco use Procedures None Brief History - From Admission This is a 62-year-old female with a PMH of HTN, COPD, Alcohol Use and Tobacco Abuse who presented to ER with complaints of SOB and wheezing x4 days. Recent admit 04/02-04/04/17 for similar complaints, found to have COPD Exacerbation w/ Hypoxia. States she was doing well until 4 days ago when she ran out of her MDI. Notes progressive SOB and wheezing since then. SOB moderate to severe, associated w/ non-productive cough, worse w/ movement/activity. Does admit to ongoing tobacco. On arrival, BP 156/100, HR 104, O2 sat 95% on RA, Afebrile. CBC at baseline. Chemistry essentially unremarkable. Troponin negative. CXR with no acute findings. S/p Solu-Medrol in ER however persistent SOB/wheezing. CBC/BMP: 04/29/17 0332 04/29/17 0332 Significant Findings Laboratory Tests Test 04/27/17 18:20 04/27/17 19:20 04/28/17 08:15 04/29/17 03:32 Mean Corpuscular Volume 102.1 FL (80.0-100.0) 100.6 FL (80.0-100.0) 101.0 FL (80.0-100.0) Mean Corpuscular Hemoglobin 35.8 PG (27.0-34.0) 35.2 PG (27.0-34.0) 35.4 PG (27.0-34.0) Creatinine 0.49 MG/DL (0.50-1.00) 0.44 MG/DL (0.50-1.00) 0.41 MG/DL (0.50-1.00) Troponin I LESS THAN 0.02 NG/ML White Blood Count 2.9 TH/MM3 (4.0-11.0) Neutrophils (%) (Auto) 90.0 % (16.0-70.0) 94.4 % (16.0-70.0) Lymphocytes # (Auto) 0.3 TH/MM3 (1.0-4.8) 0.3 TH/MM3 (1.0-4.8) Random Glucose 120 MG/DL (74-106) 135 MG/DL (74-106) Aspartate Amino Transf (AST/SGOT) 13 U/L (15-37) Red Blood Count 3.68 MIL/MM3 (4.00-5.30) Lymphocytes (%) (Auto) 4.0 % (9.0-44.0) Sodium Level 135 MEQ/L (136-145) Imaging Last Impressions Chest X-Ray 04/27/17 7058 Signed Impressions: Service Date/Time: Thursday, April 27, 2017 17:57 - CONCLUSION: 1. Stable changes of obstructive pulmonary disease. 2. No acute abnormality or significant interval change. Bryan Baldwin MD PE at Discharge General: No acute distress. Heart: Tachycardia. Lungs: Mild wheeze. Breathing is nonlabored. Abdomen: Soft, nontender, nondistended. Extremities: No lower extremity edema. Psych: Alert and oriented. Hospital Course The patient was admitted for management of COPD exacerbation. She was continued on oxygen, steroids, DuoNeb. Her respiratory symptoms improved and she was weaned off oxygen. She was stable on room air. She was monitor on cardiac telemetry. Her heart rate remained elevated. Nebulizers were adjusted. Cardizem was added. Patient's heart rate improved to the 80s and remained in sinus rhythm. She was felt to be stable for discharge home. Pt Condition on Discharge: Stable Discharge Disposition: Discharge Home Discharge Time: <= 30 minutes Discharge Instructions DIET: Follow Instructions for: As Tolerated, No Restrictions, Heart Healthy Diet Activities you can perform: Regular-No Restrictions Follow up Referrals: PCP Follow-up - 1 Week New Medications: Levofloxacin (Levofloxacin) 750 Mg Tablet 750 MG PO DAILY for Infection for 4 Days, #4 TAB 0 Refills Prednisone (21) 5 mg tab Dose Pack (Prednisone (21) 5 mg tab Dose Pack) 5 Mg Dspk 5 MG PO DIRECTED for Inflammation, #1 DSPK 0 Refills Diltiazem (Cardizem) 30 Mg Tab 30 MG PO QID for Tachycardia, #120 TAB 0 Refills Continued Medications: Albuterol 8.5 GM Inh (Proair Hfa 8.5 GM Inh) 90 Mcg/Act Aer 2 PUFF INH Q4-6H PRN for SHORTNESS OF BREATH, #1 INHALER 108 mcg/actuation Folic Acid (Folic Acid) 1 Mg Tablet 1 MG PO DAILY for Nutritional Supplement, #30 TAB Hydrocodone-Acetaminophen ([place]) 10-325 Mg Tab 1 TAB PO Q8HR PRN for PAIN, TAB 0 Refills Lisinopril (Lisinopril) 20 Mg Tab 20 MG PO DAILY, #30 TAB 0 Refills Loratadine (Claritin) 10 Mg Cap 10 MG PO DAILY for Allergy Management, CAP 0 Refills Lorazepam (Ativan) 0.5 Mg Tab 0.5 MG PO DAILY PRN for ANXIETY AND/OR AGITATION, TAB 0 Refills Multiple Vitamins W/ Minerals (Thera M Plus) 1 Tab 1 TAB PO DAILY for Nutritional Supplement, #30 TAB Thiamine HCl (Gnp Vitamin B-1) 100 Mg Tab 100 MG PO DAILY for Nutritional Supplement, #30 TAB [Albuterol-Ipratropium Neb] () 1 AMPULE NEBU 1 AMPULE NEB Q4HR WHILE AWAKE NEB, #100 AMPULE [Budeson-Formot 160-4.5 Mcg Inh] () 60 PUFF AERO 2 PUFF INH Q12HR, #1 INHALER Alex Ogden MD Apr 30, 2017 15:29
== END 2017-04-30 17:08 | disposition home or self-care (01) ==
LOC: NEPC 17:18 → NEDA 21:05 → NEPFCDU 21:56
PROVIDERS: ADMIT Family Medicine; ATTEND Family Medicine
DX: J44.1 Chronic obstructive pulmonary disease with (acute) exacerbation (principal); J44.0 Chronic obstructive pulmonary disease with (acute) lower respiratory infection; J96.21 Acute and chronic respiratory failure with hypoxia; J18.9 Pneumonia, unspecified organism; I10 Essential (primary) hypertension; R94.31 Abnormal electrocardiogram [ECG] [EKG]; F17.200 Nicotine dependence, unspecified, uncomplicated; F41.9 Anxiety disorder, unspecified; Z79.82 Long term (current) use of aspirin
CPT/HCPCS: 71046; 80048; 80053; 82948; 83735; 84484; 85025; 87040; 93005; 94618; 94640; 94664; 96365; 96366; 96375; 96376; 99285; G0378; J1956; J2060; J2920; J2930; J7512

== ENCOUNTER 2017-08-27 11:47 | Emergency (ER) | payer SELFPAY ==
[~2017-08-27] VITALS: Ht 162.6 cm; Wt 55.0 kg
[~2017-08-27 11:47] MED LIST changes: +DILT31TA PO; -LEVA750T9 PO; +LEVO750T3 PO; -PRED20 PO; +PRED5PAK PO
[2017-08-27 11:50] VITALS: BP 148/76; PULSE 118; RESP 16; TEMP 98.9; O2SAT 97
--- NOTE | 2017-08-27 12:31 | RADRPT ---
EXAM DATE: 08/27/2017 12:27 PM EDT AGE/SEX: 62 years / Female INDICATIONS: Shortness of breath. CLINICAL DATA: This is the patient's initial encounter. Patient reports that signs and symptoms have been present for 1 day and indicates a pain score of 0/10. MEDICAL/SURGICAL HISTORY: Hypertension. Chronic obstructive pulmonary disease. None. COMPARISON: [facility] [place], CHEST PA & LAT, 04/27/2017. . FINDINGS: PA and lateral views of the chest demonstrate the lungs to be symmetrically aerated without evidence of mass, infiltrate or effusion. Mild hyperinflation The cardiomediastinal contours are unremarkable. Osseous structures are intact. CONCLUSION: Mild hyperinflation without focal infiltrate. Electronically signed by: Napoleon Marion MD 08/27/2017 12:30 PM EDT
[2017-08-27 13:00] LABS: AUTOMATED NEUTROPHIL # 3.9 TH/MM3 (1.8-7.7); BASOPHIL % 0.2 % (0.0-2.0); EOSINOPHIL # 0.1 TH/MM3 (0-0.4); EOSINOPHIL % 1.5 % (0.0-4.0); HEMATOCRIT 40.2 % (35.0-46.0); HEMOGLOBIN 13.8 GM/DL (11.6-15.3); LYMPH % 20.2 % (9.0-44.0); LYMPHOCYTE # 1.2 TH/MM3 (1.0-4.8); MEAN CELL VOLUME 100.7 FL (80.0-100.0); MEAN CORPUSCULAR HEMOGLOBIN 34.5 PG (27.0-34.0); MEAN CORPUSCULAR HGB CONC 34.3 % (32.0-36.0); MEAN PLATELET VOLUME 8.1 FL (7.0-11.0); MONO % 9.9 % (0.0-8.0); MONOCYTE # 0.6 TH/MM3 (0-0.9); NEUT % 68.2 % (16.0-70.0); PLATELET COUNT 280 TH/MM3 (150-450); RED BLOOD COUNT 3.99 MIL/MM3 (4.00-5.30); RED CELL DISTRIBUTION WIDTH 13.2 % (11.6-17.2); WHITE BLOOD COUNT 5.7 TH/MM3 (4.0-11.0)
[2017-08-27 13:22] LABS: BICARBONATE 27.2 MEQ/L (21.0-32.0); CALCIUM 9.7 MG/DL (8.5-10.1); CREATININE 0.64 MG/DL (0.50-1.00)
[2017-08-27 13:58] VITALS: RESP 20; O2SAT 99
[2017-08-27] MEDS ORDERED: methylPREDNISolone SOD SUCC 125 MG/2 ML VIAL IV PUSH ONE (14:00)
[2017-08-27] MEDS ORDERED: SODIUM CHLORIDE 0.9% FLUSH 10 ML FLUSH IVF PRN (14:00)
[2017-08-27] MEDS ORDERED: ALPR.5 PO (14:02)
--- NOTE | 2017-08-27 14:05 | PD ---
HPI Chief Complaint: Respiratory Symptoms Time Seen by Provider: 13:51 Travel History International Travel<30 days: No Contact w/Intl Traveler<30days: No Traveled to known affect area: No History of Present Illness HPI The patient is a 62-year-old female who presents to the emergency department via private vehicle for shortness of breath. The patient has a history of COPD and tobacco use. The patient states he recently ran out of her Symbicort and albuterol nebulizers, has had increasing shortness of breath which has progressed over the last several days. She does note increasing shortness of breath that is worse with exertion, mildly alleviated at rest. She does note wheezing, dry nonproductive cough, without any chest pain. She does complain of mild tightness intermittently associated with her wheezing. The patient has a primary physician, Dr. Chani Juárez, however, does not have a threading machine tender. She denies any history of pulmonary embolism or DVT. Symptoms are moderate. The patient denies any associated fever, chills, or sweats. PFSH Past Medical History Hx Anticoagulant Therapy: Yes (ASA) Asthma: Yes Blood Disorders: No Heart Rhythm Problems: No Cancer: No Cardiovascular Problems: Yes (HTN) High Cholesterol: No Chest Pain: No Congestive Heart Failure: No COPD: Yes Diabetes: No Diminished Hearing: No Endocrine: No Gastrointestinal Disorders: No Genitourinary: No Hypertension: Yes Immune Disorder: No Implanted Vascular Access Dvce: No Musculoskeletal: No Neurologic: No Psychiatric: No Reproductive: No Respiratory: Yes ?: Not Menopausal: Yes Past Surgical History Other Surgery: No Social History Alcohol Use: Yes (2-3 beers per day) Tobacco Use: No (3-4 cigarettes) Substance Use: No Allergies-Medications (Allergen,Severity, Reaction): Coded Allergies: No Known Allergies (Verified Allergy, Unknown, 04/27/17) Reported Meds & Prescriptions Reported Meds & Active Scripts Active [Budeson-Formot 160-4.5 Mcg Inh] 60 PUFF Aero 2 Puff INH Q12HR Proair Hfa 8.5 GM Inh (Albuterol Sulfate) 90 Mcg/Act Aer 2 Puff INH Q4-6H PRN 108 mcg/actuation Reported Xanax (Alprazolam) 0.5 Mg Tab 0.5 Mg PO BID PRN Lisinopril 20 Mg Tab 20 Mg PO DAILY Claritin (Loratadine) 10 Mg Cap 10 Mg PO DAILY [place] (Hydrocodone-Acetaminophen) 10-325 Mg Tab 1 Tab PO Q8HR PRN Review of Systems Except as stated in HPI: all other systems reviewed are Neg HENT: No: Lightheadedness Cardiovascular: No: Chest Pain or Discomfort, Diaphoresis Respiratory: Positive: Cough, Shortness of Breath, Wheezing Gastrointestinal: No: Nausea, Vomiting Musculoskeletal: No: Edema Neurologic: No: Dizziness Physical Exam Narrative GENERAL: Awake, alert, pleasant 62-year-old female who appears her stated age and is in no acute respiratory distress. SKIN: Focused skin assessment warm/dry. HEAD: Atraumatic. Normocephalic. EYES: No injection or drainage. ENT: No nasal bleeding or discharge. Mucous membranes pink and moist. NECK: Trachea midline. No JVD. CARDIOVASCULAR: Regular, tachycardic with a heart rate of 120. RESPIRATORY: Tachypnea with a respiratory rate of 24. Supraclavicular retractions noted. Diminished breath sounds throughout with prolonged expiratory phase and occasional wheeze. GASTROINTESTINAL: Abdomen soft, non-tender, nondistended. MUSCULOSKELETAL: No obvious deformities. No clubbing. No cyanosis. No edema. NEUROLOGICAL: Awake and alert. No obvious cranial nerve deficits. Motor grossly within normal limits. Normal speech. PSYCHIATRIC: Appropriate mood and affect; insight and judgment normal. Data Data Last Documented VS Vital Signs Date Time Temp Pulse Resp B/P (MAP) Pulse Ox O2 Delivery O2 Flow Rate FiO2 08/27/17 15:59 97.8 111 20 123/90 (101) 96 Room Air Orders Orders Complete Blood Count With Diff (08/27/17 11:53) Basic Metabolic Panel (Bmp) (08/27/17 11:53) Chest, Pa & Lat (08/27/17 11:53) Blood Culture (08/27/17 11:53) Iv Access Insert/Monitor (08/27/17 11:53) Ecg Monitoring (08/27/17 11:53) Oxygen Administration (08/27/17 11:53) Oximetry (08/27/17 11:53) Electrocardiogram (08/27/17 11:53) D-Dimer (08/27/17 13:59) Sodium Chloride 0.9% Flush (Ns Flush) (08/27/17 14:00) Methylprednisolone So Succ Inj (Solumedr (08/27/17 14:00) Albuterol-Ipratropium Neb (Duoneb Neb) (08/27/17 14:00) Troponin I (08/27/17 14:05) B-Type Natriuretic Peptide (08/27/17 14:05) Ct Pulmonary Angiogram (08/27/17 ) Iohexol 350 Inj (Omnipaque 350 Inj) (08/27/17 16:41) Labs Laboratory Tests Test 08/27/17 12:30 08/27/17 14:12 White Blood Count 5.7 TH/MM3 Red Blood Count 3.99 MIL/MM3 Hemoglobin 13.8 GM/DL Hematocrit 40.2 % Mean Corpuscular Volume 100.7 FL Mean Corpuscular Hemoglobin 34.5 PG Mean Corpuscular Hemoglobin Concent 34.3 % Red Cell Distribution Width 13.2 % Platelet Count 280 TH/MM3 Mean Platelet Volume 8.1 FL Neutrophils (%) (Auto) 68.2 % Lymphocytes (%) (Auto) 20.2 % Monocytes (%) (Auto) 9.9 % Eosinophils (%) (Auto) 1.5 % Basophils (%) (Auto) 0.2 % Neutrophils # (Auto) 3.9 TH/MM3 Lymphocytes # (Auto) 1.2 TH/MM3 Monocytes # (Auto) 0.6 TH/MM3 Eosinophils # (Auto) 0.1 TH/MM3 Basophils # (Auto) 0.0 TH/MM3 CBC Comment DIFF FINAL Differential Comment Blood Urea Nitrogen 12 MG/DL Creatinine 0.64 MG/DL Random Glucose 70 MG/DL Calcium Level 9.7 MG/DL Sodium Level 141 MEQ/L Potassium Level 3.5 MEQ/L Chloride Level 107 MEQ/L Carbon Dioxide Level 27.2 MEQ/L Anion Gap 7 MEQ/L Estimat Glomerular Filtration Rate 94 ML/MIN Troponin I LESS THAN 0.02 NG/ML D-Dimer Quantitative (PE/DVT) 0.52 MG/L FEU B-Type Natriuretic Peptide 35 PG/ML MDM Medical Decision Making Medical Screen Exam Complete: Yes Emergency Medical Condition: Yes Medical Record Reviewed: Yes Interpretation(s) Last Impressions Chest X-Ray 08/27/17 1153 Signed Impressions: CONCLUSION: Mild hyperinflation without focal infiltrate. CT Angiography 08/27/17 0000 Signed Impressions: CONCLUSION: 1. No evidence of pulmonary embolism. 2. Left adrenal gland masses. Recommend follow-up with elective outpatient MR I Laboratory Tests Test 08/27/17 12:30 08/27/17 14:12 White Blood Count 5.7 TH/MM3 Red Blood Count 3.99 MIL/MM3 Hemoglobin 13.8 GM/DL Hematocrit 40.2 % Mean Corpuscular Volume 100.7 FL Mean Corpuscular Hemoglobin 34.5 PG Mean Corpuscular Hemoglobin Concent 34.3 % Red Cell Distribution Width 13.2 % Platelet Count 280 TH/MM3 Mean Platelet Volume 8.1 FL Neutrophils (%) (Auto) 68.2 % Lymphocytes (%) (Auto) 20.2 % Monocytes (%) (Auto) 9.9 % Eosinophils (%) (Auto) 1.5 % Basophils (%) (Auto) 0.2 % Neutrophils # (Auto) 3.9 TH/MM3 Lymphocytes # (Auto) 1.2 TH/MM3 Monocytes # (Auto) 0.6 TH/MM3 Eosinophils # (Auto) 0.1 TH/MM3 Basophils # (Auto) 0.0 TH/MM3 CBC Comment DIFF FINAL Differential Comment Blood Urea Nitrogen 12 MG/DL Creatinine 0.64 MG/DL Random Glucose 70 MG/DL Calcium Level 9.7 MG/DL Sodium Level 141 MEQ/L Potassium Level 3.5 MEQ/L Chloride Level 107 MEQ/L Carbon Dioxide Level 27.2 MEQ/L Anion Gap 7 MEQ/L Estimat Glomerular Filtration Rate 94 ML/MIN Troponin I LESS THAN 0.02 NG/ML D-Dimer Quantitative (PE/DVT) 0.52 MG/L FEU B-Type Natriuretic Peptide 35 PG/ML Differential Diagnosis Differential diagnosis includes pulmonary embolism, COPD exacerbation, bronchitis, pneumonia, pleural effusion, pulmonary edema, cardiomyopathy, pericardial effusion, CHF. Narrative Course IV was established, labs are drawn and sent, and the patient was placed on cardiac telemetry monitoring and continuous pulse oximetry monitoring. EKG was ordered and interpreted. Chest x-ray was obtained. Chest x-ray is unremarkable , the patient was noted to be tachycardic with diminished breath sounds, most likely COPD exacerbation. However, cannot rule out with PERC, therefore, d- dimer was sent to lab. BNP was 35. Troponin was negative, less than 0.02. D- dimer was mildly positive, therefore, CT pulmonary angiogram was ordered. CT pulmonary urogram is negative for PE, does reveal adrenal masses. I advised the patient of the adrenal masses and need for outpatient MRI. The patient's symptoms had improved, she was given an ambulatory test where she was ambulated. The patient's heart rate varied between 110 and 120, O2 sat was 95% . I had a discussion with the patient regarding 23 hour observation, however, she stated she felt well enough to go home. Therefore, I filled the patient's prescriptions, did advise to return if symptoms worsen or progress. Diagnosis Primary Impression: COPD exacerbation Patient Instructions: General Instructions Additional Instructions: Medications as directed. Follow-up with your primary physician. Please provide the patient a copy of her lab results and x-ray results at discharge. Return if symptoms worsen or progress. Med/Other Pt SpecificInfo: Prescription(s) given Scripts Albuterol Neb (Albuterol Neb) 2.5 Mg/3 Ml Neb 2.5 MG NEB Q4HR NEB Y for SHORTNESS OF BREATH, #60 NEBULE 0 Refills Prov: Gildardo Lindsey MD 08/27/17 Prednisone (Prednisone) 20 Mg Tab 40 MG PO DAILY, #10 TAB 0 Refills Take 40 mg (2 tablets) daily for 5 days Prov: Gildardo Lindsey MD 08/27/17 Disposition: 01 DISCHARGE HOME Condition: Stable Gildardo Lindsey MD Aug 27, 2017 14:05
[2017-08-27] MEDS: RESP: ALBUTEROL 2.5 MG/IPRATROPIUM 0.5 MG NEB (SCH) INH ×2 (14:14→14:15)
[2017-08-27 15:59] VITALS: BP 123/90; PULSE 111; RESP 20; TEMP 97.8; O2SAT 96
[2017-08-27] MEDS ORDERED: IOHEXOL 350 MG/ML 10 ML VIAL (for RAD DIAG) IVCONTRAST ONE (16:41)
--- NOTE | 2017-08-27 17:01 | RADRPT ---
EXAM DATE: 08/27/2017 4:39 PM EDT AGE/SEX: 62 years / Female INDICATIONS: Short of breath with tachycardia. CLINICAL DATA: This is the patient's initial encounter. Patient reports that signs and symptoms have been present for 1 day and indicates a pain score of 4/10. MEDICAL/SURGICAL HISTORY: Hypertension. Chronic obstructive pulmonary disease. None. RADIATION DOSE: 5.92 CTDI (mGy) COMPARISON: No prior exams available for comparison. TECHNIQUE: Volumetric scanning was performed using a multi-row detector CT scanner during bolus infu adam of 75 ml Omnipaque 350 (iohexol) nonionic water-soluble contrast as a single exam dose. The k[place] a was post processed with a variety of visualization algorithms including full volume maximum intensi ty projection and sliding thin slab reformation. Using automated exposure control and adjustment of the mA and/or kV according to patient size, radiation dose was kept as low as reasonably achievable t o obtain optimal diagnostic quality images. DICOM format image data is available electronically for review and comparison. FINDINGS: EXAM DATE: 08/27/2017 4:39 PM EDT AGE/SEX: 62 years / Female INDICATIONS: Short of breath with tachycardia. CLINICAL DATA: This is the patient's initial encounter. Patient reports that signs and symptoms have been present for 1 day and indicates a pain score of 4/10. MEDICAL/SURGICAL HISTORY: Hypertension. Chronic obstructive pulmonary disease. None. RADIATION DOSE: 5.92 CTDI (mGy) COMPARISON: No prior exams available for comparison. TECHNIQUE: Volumetric scanning was performed using a multi-row detector CT scanner during bolus infu adam of 75 ml Omnipaque 350 (iohexol) nonionic water-soluble contrast as a single exam dose. The [place] a was post processed with a variety of visualization algorithms including full volume maximum intensi ty projection and sliding thin slab reformation. Using automated exposure control and adjustment of the mA and/or kV according to patient size, radiation dose was kept as low as reasonably achievable t o obtain optimal diagnostic quality images. DICOM format image data is available electronically for review and comparison. FINDINGS: Pulmonary Arteries: No filling defects are seen in the pulmonary arteries out to the subsegmental ve ssels. The left and right pulmonary arteries are normal in diameter. Lung: No infiltrates seen. Emphysema Effusion: None. Mediastinum: No evidence of mediastinal or hilar adenopathy. Other: Incompletely seen lobular masses involving the left adrenal gland. CONCLUSION: 1. No evidence of pulmonary embolism. 2. Left adrenal gland masses. Recommend follow-up with elective outpatient MRI Electronically signed by: Nic Talley MD 08/27/2017 5:00 PM EDT
[2017-08-27] MEDS ORDERED: PRED20 PO (17:15)
[2017-08-27] MEDS ORDERED: ALBU0.08 NEB (17:15)
[2017-08-27] MEDS ORDERED: Budeson-Formot 160-4.5 Mcg Inh INH (17:22)
[2017-08-27] MEDS ORDERED: ZITHTAB PO (17:22)
[2017-08-27] MEDS ORDERED: RESP: ALBUTEROL 2.5 MG/IPRATROPIUM 0.5 MG NEB (SCH) NEB ONE (17:30)
[2017-08-27 18:00] VITALS: BP 130/82; TEMP 97.8
--- NOTE | 2017-08-27 22:16 | EKG ---
Date Performed: 08/27/2017 Time Performed: 12:14:22 PTAGE: 62 years EKG: SINUS TACHYCARDIA POSSIBLE RIGHT ATRIAL ENLARGEMENT LEFT ATRIAL ENLARGEMENT ABNORMAL ECG PREVIOUS TRACING : 04/27/2017 19.32 Since the previous tracing, no significant change noted DOCTOR: aGbe Manzo Interpretating Date/Time 08/27/2017 22:14:47
== END 2017-08-27 18:03 | disposition home or self-care (01) ==
LOC: NEPC 11:47
DX: J44.1 Chronic obstructive pulmonary disease with (acute) exacerbation (principal); I10 Essential (primary) hypertension; F17.210 Nicotine dependence, cigarettes, uncomplicated
CPT/HCPCS: 71046; 71275; 80048; 83880; 84484; 85025; 85379; 87040; 93005; 94640; 94664; 96374; 99285; J2930; Q9967